=== PATIENT | male | born 1960 | race Two or more races ===

== ENCOUNTER 2024-04-03 13:47 | Outpatient (AMB) | payer MEDICAID, SELFPAY ==
--- NOTE | 2024-04-03 14:12 | A.OFFVIS_ITS ---
Intake Visit Reasons: BPH/elevated PSA Intake Note: New Patient presents for initial visit for BPH/elevated psa Urology Medications: finasteride Blood Thinner: apixaban PVR: 66ml's Clinical Education Academic Coordinator Required: No Accompanied by: Self / Same As Patient Allergies No Known Allergies Allergy (Verified 04/03/24 14:54) Medication List - Last Reconciled 04/03/24 by VINCENT Olvera- apixaban (Eliquis) 5 mg PO BID diclofenac sodium 1% 4 grams topical QID duloxetine 60 mg PO DAILY finasteride 5 mg PO DAILY omeprazole 20 mg PO DAILY tamsulosin 0.4 mg PO QPM trazodone 50 - 100 mg PO BEDTIME HPI Comments Details: Eduardo is a 63-year-old male patient of . He has a past medical history of leukopenia, elevated PSA, renal cysts, fibromyalgia, DVT, epididymitis, hyperlipidemia, stage 3 chronic kidney disease, insomnia, anxiety, depression, and BPH. He presents to the office today as a new patient for an elevated PSA. In discussion with the patient today reports having followed up with [facility] however has since switched insurances and needs to reestablish urology care. In review of patient's chart and previous urology records patient with a history of elevated PSA and BPH. He has a history of negative prostate biopsy 03/30 at which time his PSA was (5.3). Normal prostate MRI 09/2018. He reports being on Flomax and finasteride for many years and feels this has been helpful in maintaining his urinary stream. He discusses missing a dose of Flomax and notes weak urinary stream and urinary hesitancy. He does however endorse retrograde ejaculation. We discussed side effects of urological medications. We discussed obtaining PSA for further assessment evaluation. Patient also with a history of gross hematuria and has underwent in office cystoscopy with [facility]. In review of patient's medical record it appears patient with atypical cytologies 2017, 2019, and 2020 however declined recystoscopy. He currently denies any bothersome urinary issues or concerns. He denies urinary urgency, urinary frequency, incontinence, nocturia, hematuria, dysuria, foul smelling urine, changes to urinary stream, flank pain, fever, and or chills. He is happy with his current voiding parameters. DONG offered however deferred. Discussed obtaining PSA and retroperitoneal ultrasound for further assessment and evaluation. [facility] Medical History (Updated 04/03/24 @ 21:30 [facility] Elevated PSA Leukopenia Cyst of kidney, acquired Fibromyalgia Spondylosis without myelopathy or radiculopathy, cervical region History of DVT of lower extremity Epididymitis Gastro-esophageal reflux disease without esophagitis Hyperlipidemia Stage 3a chronic kidney disease Insomnia Anxiety and depression Benign prostatic hyperplasia with nocturia Surgical History (Updated 03/28/24 @ 17:16 by Chai Samayoa) History of testicular surgery Review of Systems Const All systems reviewed & are unremarkable except as noted in HPI and below Physical Exam Const General: cooperative, healthy appearing, comfortable, no acute distress, well developed, alert and awake Orientation/consciousness: patient oriented x3 Limitations: no limitations HEENT Head: Yes normal to inspection, Yes normocephalic and Yes atraumatic Ears: hearing grossly normal bilaterally Eyes General: appearance normal, both eyes and all related structures Neck Neck: Yes normal visual inspection and Yes trachea midline Chest Chest palpation & inspection: normal inspection of the chest Resp Effort & Inspection: normal respiratory effort and able to speak in complete sentences Cardio Rate: regular rate GI Inspection: Yes normal to inspection General: Yes no CVA tenderness Back/Spine/Pelvis Back: no CVA tenderness Skin General skin exam: no rashes or lesions noted Neuro General: patient oriented x3 Extrem General: Yes normal to inspection Psych Appearance: grossly normal and well kempt Mental Status: mental status grossly normal Speech and movement: Normal speech and movement present and Clear speech present Affect: normal affect Attitude: cooperative Thought process: Normal thought process present Thought content: Normal thought content present Insight: Fair insight present (Psych) Judgement: Fair judgement present (Psych) Office Procedures Post Void Residual Post Residual Void Post Void Residual (PVR): 66 [id number]-[id number] Void Residual by ultrasound Results AMB Urinalysis, Automated UA Leukoctes 0 Dottie/uL Last Edit by Chai Samayoa on 04/03/24 14:45 UA Nitrite Last Edit by Chai Samayoa on 04/03/24 14:45 UA Urobilinogen 0.2 mg/dL Last Edit by Chai Samayoa on 04/03/24 14:45 UA Protein 0 mg/dL Last Edit by Chai Samayoa on 04/03/24 14:45 UA pH 7.0 Last Edit by Chai Samayoa on 04/03/24 14:45 UA Blood 0 Geovanni/uL Last Edit by Chai Samayoa on 04/03/24 14:45 UA Specific Monroe 1.015 Last Edit by Chai Samayoa on 04/03/24 14:45 UA Ketone Last Edit by Chai Samayoa on 04/03/24 14:45 UA Bilirubin 0 mg/dL Last Edit by Chai Samayoa on 04/03/24 14:45 UA Glucose 0 mg/dL Last Edit by Chai Samayoa on 04/03/24 14:45 Results Reviewed Results Reviewed: Laboratory Last Values Urine pH (Auto) 7.0 04/03/24 14:41 Specific Monroe (Auto) 1.015 04/03/24 14:41 Urine Protein (Auto) 0 mg/dL 04/03/24 14:41 Glucose (UA)(Auto) 0 mg/dL 04/03/24 14:41 Urine Blood (Auto) 0 Geovanni/uL 04/03/24 14:41 Urine Bilirubin (Auto) 0 mg/dL 04/03/24 14:41 Urine Urobilinogen (Auto) 0.2 mg/dL 04/03/24 14:41 Leukocyte Esterase (Auto) 0 Dottie/uL 04/03/24 14:41 Assessment & Plan Assessment & Plan (1) Renal cyst: Code(s): N28.1 - Cyst of kidney, acquired Category: Medical (2) Gross hematuria: Code(s): R31.0 - Gross hematuria Category: Medical (3) BPH (benign prostatic hyperplasia): Code(s): N40.0 - Benign prostatic hyperplasia without lower urinary tract symptoms Category: Medical (4) Elevated PSA: Code(s): R97.20 - Elevated prostate specific antigen [PSA] Category: Medical (5) Retrograde ejaculation: Code(s): N53.14 - Retrograde ejaculation Category: Medical Plan In office urinalysis results reviewed with the patient today; as noted above. PVR 66 mL Previous urology records were reviewed for continuity of care. Will obtain redraw of PSA; discussed no caffeine morning of blood work, no heavy lifting 1-2 days prior, and no sexual activity day before. Continue finasteride. Start alfuzosin as discussed and prescribed. Stop Flomax. Discussed potential causes of lower urinary tract symptoms as well as elevated PSA. Discussed history of abnormal cytologies and cystoscopy for further assessment evaluation however patient continues to decline at this time. DONG offered however deferred. Will obtain retroperitoneal ultrasound for further assessment evaluation. Follow-up in 1-3 months with labs and imaging to be completed prior and PVR at next office visit; or sooner with any issues, concerns, and or questions. Orders: Orders AMB Urinalysis Automated Today Z13.9 - Encounter for screening, unspecified AMB Post Void Residual by ultrasound Today Z13.9 - Encounter for screening, unspecified Prostate Specific Antigen 6 Months N40.0 - Benign prostatic hyperplasia without lower urinary tract symptoms, R97.20 - Elevated prostate specific antigen [PSA] Medications: New alfuzosin ER Take before bedtime 10 mg PO BEDTIME 30 tabs 3RF 30 days N32.0 - Bladder- neck obstruction, N40.1 - Benign prostatic hyperplasia with lower urinary tract symptoms, R33.9 - Retention of urine, unspecified, R35.1 - Nocturia, R39.12 - Poor urinary stream Patient Instructions: The patient had an opportunity to ask questions regarding the treatment plan. All questions were answered. Physical exam, labs, and imaging were discussed and reviewed in detail. As well as risks, benefits, and discussion of treatment choices. No major barriers to understanding were identified. The patient expressed understanding and agreement with the above treatment plan. The patient was made aware they should contact our office by phone for worsening of their current condition, the appearance of new symptoms, or with any questions or concerns. Compliance is encouraged with any medications and follow up testing that is ordered. It is a privilege to be allowed the opportunity to participate in? your urological care.? Again, if you have any questions or concerns If you have any questions or concerns please do not hesitate to contact me. The office is [phone]. This note is constructed using voice recognition software. While every effort has been made to ensure accuracy atomic physics teacher errors may have been included. Yours sincerely, YEIMI OlveraP-BC Coding Level of Care Code New Pt Level 4 (59828) Diagnoses Renal cyst N28.1 Gross hematuria R31.0 BPH (benign prostatic hyperplasia) N40.0 Elevated PSA R97.20 Retrograde ejaculation N53.14 CPT Codes Post Residual Void - PVR CPT Code: 35009-[id number] Void Residual by ultrasound ([id number])
== END 2024-04-03 14:59 | disposition home or self-care (01) ==
PROVIDERS: PCP Internal Medicine; Visit Provider Nurse Practitioner Family
DX: N28.1 Cyst of kidney, acquired (principal); R31.0 Gross hematuria; N40.0 Benign prostatic hyperplasia without lower urinary tract symptoms; R97.20 Elevated prostate specific antigen [PSA]; N53.14 Retrograde ejaculation; Z13.9 Encounter for screening, unspecified
CPT/HCPCS: 99204

== ENCOUNTER → 2024-04-03 13:47 | Outpatient (BNVA) | payer MEDICAID, SELFPAY | PROVIDERS: PCP Internal Medicine; Visit Provider Nurse Practitioner Family | DX: R97.20 Elevated prostate specific antigen [PSA] (principal); N28.1 Cyst of kidney, acquired; N40.0 Benign prostatic hyperplasia without lower urinary tract symptoms; R31.0 Gross hematuria; N53.14 Retrograde ejaculation | CPT/HCPCS: 51798; 81003; 99212 ==

== ENCOUNTER 2024-08-02 10:43 | Outpatient (REF) | payer OTHER, SELFPAY ==
[2024-08-02 14:00] LABS: Prostate Specific Antigen 5.15 ng/mL (<0.05-4.0)
== END 2024-08-02 10:44 | disposition home or self-care (01) ==
LOC: HO.HMGCLDS 10:43
PROVIDERS: PCP Internal Medicine; Visit Provider Nurse Practitioner Family
DX: R97.20 Elevated prostate specific antigen [PSA] (principal); N40.0 Benign prostatic hyperplasia without lower urinary tract symptoms; Z12.5 Encounter for screening for malignant neoplasm of prostate
CPT/HCPCS: 36415; 84153

== ENCOUNTER 2024-08-23 11:25 | Outpatient (REF) | payer OTHER, SELFPAY ==
--- OUTSIDE RECORDS SUMMARY | 2024-08-23 12:26 | XMS_ITS | Encounter Summary ---
Author Organization [facility] Address [address] [place] [address] Care Team Providers Care Coil Inspector Name Role Phone Mao Muro MD Primary Care Provider [phone] Reason for Visit * Reason Onset Date Comments Fitting for DME 08/22/2024 Faxed form home care delivered Encounter Details Date Type Department Care Team (Late st Contact Info) Description 08/22/2024 Telephone Adult Medicine [address] [address] Quin Elmore LPN Fitting for DME (Faxed form home care delivered) Social History Tobacco Use Types Packs/Day Years Used Date Smoking Tobacco: Never Smokeless Tobacco: Never Alcohol Use Standard Drinks/Week Comments Yes 0 (1 standard drink = 0.6 oz pur e alcohol) Sex and Gender Information Value Date Recorded Sex Assigned at Not on file Legal Sex Male 4:32 PM EST Gender Identity Not on file Sexual Orientation Not on file documented as of this encounter Progress Notes * Quin Elmore LPN - 08/22/2024 10:55 AM EDT For gloves,skin sealant pull ons disposable underpads Form to Dr Muro to sign documented in this encounter Plan of Treatment Upcoming Encounters Date Type Department Care Team (Late st Contact Info) Description 09/24/2024 9:30 AM EDT Office Visit Adult Medicine [facility] [address] [place] [address] Mao Muro MD [address] [place] [phone] 10/03/2024 10:45 AM EDT Office Visit [facility] Hematology Oncology [address] [place] [address] Radha Andrews MD [address] [place] [address] documented as of this encounter Visit Diagnoses Not on filedocumented in this encounter Care Teams Coil Inspector Relationship Specialty Start Date End Date Mao Muro MD [address] [place] [address] PCP - General Internal Medicine 12/26/16 documented as of this encounter
--- OUTSIDE RECORDS SUMMARY | 2024-08-23 12:26 | XMS_ITS | Clinical Summary ---
Author Organization [facility] Address [address] [place], [place] [id number] Care Team Providers Care Living Specialist Name Role Phone Mao Muro MD Primary Care Provider [phone] Allergies No known active allergies Medications Medication Sig Dispensed Refills Start Date End Date Status diclofenac (VOLTAREN) 75 MG EC tablet TK 1 T PO BID 5 11/23/2018 Active DULoxetine (CYMBALTA) DR capsule 60 mg TK 1 C PO D 5 02/13/2019 Active fluticasone (FLONASE) 50 MCG/ACT nasal spray SHAKE LQ AND U 2 SPRAYS IEN D 3 11/23/2018 Active gabapentin (NEURONTIN) 600 MG tablet TK 1 T PO TID 5 01/20/2019 Active traZODone (DESYREL) 50 MG tablet TK 1 TO 2 TS PO HS PRF FILLER LEAF CUTTER LONG 1 02/13/2019 Active tamsulosin (FLOMAX) 0.4 MG CAPS TK 2 CS PO QD 30 MIN AFTER THE SAME MEAL 5 02/13/2019 Active sertraline (ZOLOFT) 100 MG tablet TK 1 T PO D 5 02/13/2019 Active omeprazole (PriLOSEC) 20 MG capsule TK 1 C PO D 5 11/23/2018 Active Active Problems No known active problems Family History Medical History Relation Name Comments Cancer Father Relation Name Status Comments Father Social History Tobacco Use Types Packs/Day Years Used Date Smoking Tobacco: Never Smokeless Tobacco: Never Alcohol Use Standard Drinks/Week Comments No 0 (1 standard drink = 0.6 oz pur e alcohol) Sex and Gender Information Value Date Recorded Sex Assigned at Not on file Gender Identity Not on file Sexual Orientation Not on file Job Start Date Occupation Industry Not on file Not on file Not on file Last Filed Vital Signs Vital Sign Reading Time Taken Comments Blood Pressure 119/79 09/19/2022 8:49 AM EDT Pulse 67 09/19/2022 8:49 AM EDT Temperature 36.1 ??C (97 ??F) 09/19/2022 8:49 AM EDT Respiratory Rate - - Oxygen Saturation 98% 09/19/2022 8:49 AM EDT Inhaled Oxygen Concentration - - Weight 85.3 kg (188 lb) 09/19/2022 8:49 AM EDT Height 175.3 cm (5' 9 ) 09/19/2022 8:49 AM EDT Body Mass Index 27.76 09/19/2022 8:49 AM EDT Plan of Treatment Health Maintenance Due Date Last Done Comments Hepatitis C Screening 1958 Depression Screening 1970 BMI Counseling 1976 Preventative Health Evaluation 1976 Colon Cancer Screening (Colonoscopy) 10/26/2003 Shingrix-Zoster Vaccine (1 o f 2) 2008 Fall Risk Assessment 10/26/2023 Pneumococcal Vaccine (1 of 1 - PCV) 10/26/2023 COVID-19 Vaccine (3 - 2023-2 5 season) 2024 09/22/2020, 09/01/2020 Influenza Vaccine (#1) 2024 8, 02/11/2015 DTap / Tdap / Td (2 - Td or Tdap) 06/21/2027 06/21/2017 RSV Adult > 60+ Yrs or (1 - 1-dose 75+ series) 2033 Hepatitis B Vaccines Aged Out No long er eligible based on patient's age to complete this topic Pneumococcal Vaccine Aged Out No long er eligible based on patient's age to complete this topic RSV Ped < 20 months Aged Out No longe r eligible based on patient's age to complete this topic Care Teams Living Specialist Relationship Specialty Start Date End Date Mao Muro MD PCP - General Internal Medicine 01/31/20
--- OUTSIDE RECORDS SUMMARY | 2024-08-23 12:26 | XMS_ITS | Clinical Summary ---
Author Organization [facility] Address [address] [place] [address] Phone Care Team Providers Care Automation Test Engineer Name Role Phone Mao Muro MD Primary Care Provider [phone] Allergies No known active allergies Medications apixaban (Eliquis) 5 mg tablet Take 1 tablet (5 mg total) by mouth 2 (two) times a day. 4 Active gabapentin (NEURONTIN) 600 mg tablet TAKE 1 TABLET BY MOUTH THREE TIMES A DAY 4 Active finasteride (PROSCAR) 5 mg tablet Take 1 tablet (5 mg total) by mouth 1 (one) time each day. 4 Active tamsulosin (FLOMAX) 0.4 mg 24 hr capsule Take 2 Capsules by mouth daily. Take 30 mins after same meal every day. 4 Active diclofenac (VOLTAREN) 1 % topical gel Apply 4 g topically 4 times daily. 3 Active fluticasone propionate (FLONASE) 50 mcg/actuation nasal spray Shake liquid and use 2 sprays in each nostril 2 Active sertraline (ZOLOFT) 100 mg tablet Take 1 tablet (100 mg total) by mouth 1 (one) time each day. 2 Active hydrocortisone (Proctozone-HC) 2.5 % rectal cream USE RECTALLY UP TO FIVE TIMES DAILY NEEDED 0 Active omeprazole (PriLOSEC) [address] capsule TAKE 1 CAPSULE BY MOUTH EVERY DAY 90 capsule 1 4 Active traZODone (DESYREL) 50 mg tablet TAKE 1 TO 2 TABLETS BY MOUTH AT BEDTIME 180 tablet 1 5 Active DULoxetine (CYMBALTA) [address] capsule TAKE 1 CAPSULE BY MOUTH EVERY DAY 90 capsule 1 5 Active Active Problems Problem Noted Date Diagnosed Date Anxiety and depression 09/26/2022 Benign prostatic hyperplasia with nocturia 09/26 Gastroesophageal reflux disease 09/26/2022 Hyperlipidemia 09/26/2022 Insomnia 09/26/2022 Stage 3a chronic kidney disease (CMS/HCC V24, CM S/HCC V28) 09/26/2022 COVID-19 06/10/2021 Overview (03/07/2024): DX: 05/25/21 [facility]. Epididymitis 06/10/2021 Overview (03/07/2024): Hospitalized [facility] 06/06/21. Follows with urology. Scheduled for L orchectomy. Spondylosis of cervical slava on without myelopathy or radiculopathy 08/08/2019 Tendinitis of both rotator cuffs 08/08/2019 Elevated PSA 01/28/2019 Hematuria 01/28/2019 Vitamin D deficiency 06/21/2017 Sleep disorder 05/07/2017 Overview (03/07/2024): 05/01/2017 Diagnostic Sleep Study did not reveal sleep apnea. Spondylosis of lumbosacral region 04/14/2017 Fibromyalgia 12/16/2015 Kidney cyst, acquired 02/11/2015 Overview (03/07/2024): Repeat mri in 11/2015 Leukopenia 10/24/2014 Overview (03/07/2024): With thrombocytopenia and splenomegaly. Bone marrow bx 09/2020 was normal Follows with hematology. Encounters Date Type Department Care Team Description 08/22/2024 Telephone Adult Medicine [address] [place] [address] Quin Elmore LPN Fitting for DME (Faxed form home care delivered) 07/25/2024 Telephone Adult Medicine [facility] [address] [place] [address] Quin Elmore LPN Fitting for DME (Faxed form from home care delivered); Appointment from Last 3 Months Immunizations Name Administration Dates Next Due Influenza Quadravalent, MDCK , 0.5ml, preservative free (Flucelvax) 6mo and older 03/27/2018 Influenza trivalent, 0.5mL, preservative free (Fluarix; FluLaval; Fluzone) ages 6mo and older (Afluria) 3 years and older 02/11/2015 Pfizer SARS-CoV-2 COVID-19, mRNA, LNP-S, preservative free 09/22/2020,09/01/2020 Tdap Tetanus diptheria acell ular pertussis (Boostrix; Adacel) 7yo and older 06/21/2017 Surgical History Surgery Date Site/Laterality Comments OTHER SURGICAL HISTORY PROCEDURE: ---- OTHER ----; COMMENT: testicle surgery age 3 Medical History Medical History Date Comments Joint pain 09/08/2014 DX:Joint pain Family History Medical History Relation Name Comments Other cancer Father Relation Name Status Comments Father Social [...] on file Sexual Orientation Not on file Obstetrics History Last Filed Vital Signs Vital Sign Reading Time Taken Comments Blood Pressure 121/78 04/05/2024 10:13 AM EST Pulse 62 04/05/2024 10:13 AM EST Temperature 36.2 ??C (97.2 ??F) 04/05/2024 10:[address] Respiratory Rate - - Oxygen Saturation 100% 04/05/2024 10:13 AM EST Inhaled Oxygen Concentration - - Weight 85.7 kg (189 lb) 05/24/2024 10:22 AM EST Height 175.3 cm (5' 9.02 ) 05/24/2024 10:[address] Body Mass Index 27.9 05/24/2024 10:22 AM EST Plan of Treatment Upcoming Encounters Date Type Department Care Team (Late st Contact Info) Description 09/24/2024 9:30 AM EDT Office Visit Adult Medicine [facility] [address] [place] [address] Mao Muro MD [address] [place] [address] 10/03/2024 10:45 AM EDT Office Visit [facility] Hematology Oncology [address] [place] [phone] Radha Andrews MD [address] [place] [address] Health Maintenance Due Date Last Done Comments Pneumococcal Vaccine: 50+ Years (1 of 1 - PCV) 2008 Zoster Vaccines (1 of 2) 2008 COVID-19 Vaccine (3 - Pfizer risk series) 10/20/2020 09/22/2020, 09/01/2020 Social Influencers of Health Screening 04/23/2022 Falls Risk Assessment 10/26/2023 Depression Screening 09/04/2024 09/05/2023 Influenza Vaccine (Season Ended) 2025 03/27/2018, 02/11/2015 Colorectal Cancer Screening: Colonoscopy 09/29/2025 09/30/2015 DTaP,Tdap,and Td Vaccines (2 - Td or Tdap) 06/21/2027 06/21/2017 Cholesterol Screening (Lipid Panel) 03/11/2029 03/11/2024, 05/27/2022 RSV Immunization Adult Patients (1 - 1-dose 75+ series) 2033 Hepatitis C Screening Completed 11/04/2014 HIB Vaccines Aged Out No longer eligi ble based on patient's age to complete this topic HPV Vaccines Aged Out No longer eligi ble based on patient's age to complete this topic Hepatitis A Vaccines Aged Out No long er eligible based on patient's age to complete this topic Hepatitis B Vaccines Aged Out No long er eligible based on patient's age to complete this topic IPV Vaccines Aged Out No longer eligi ble based on patient's age to complete this topic MMR Vaccines Aged Out No longer eligi ble based on patient's age to complete this topic Meningococcal ACWY Vaccine Aged Out N o longer eligible based on patient's age to complete this topic Meningococcal B Vaccine Aged Out No l onger eligible based on patient's age to complete this topic Pneumococcal Vaccine: Pediatrics (0 to 5 Years) and At-Risk Patients (6 to 64 Years) Aged Out No longer eligible b ased on patient's age to complete this topic RSV Immunization Patients Under 20 months Aged Out No longer eligible b ased on patient's age to complete this topic Varicella Vaccines Aged Out No longer eligible based on patient's age to complete this topic Procedures Procedure Name Priority Date/Time Associated Diagnosis Comments DEPRESSION SCREENING Routine 09/05/2023 LIPID PANEL Routine 05/27/2022 COLONOSCOPY Routine 09/30/2015 HEPATITIS C SCREENING Routine 11/04/2014 from Last 3 Months or Most Recently Relevant to Health Maintenance Results * Depression Screening (09/05/2023) [facility] Depression Screening abstracted [facility] Provider HEALTH MAINTENANCE Final Result * (ABNORMAL) Lipid panel (05/27/2022) [facility] LDL/HDL Ratio 4 0 - 4 Triglycerides 104 0 - 150 mg/dL Cholesterol 181 0 - 200 mg/dL HDL 45 >=40 mg/dL LDL Cholesterol 116(A) 0 - 100 mg/dL Blood Venous blood specimen / Unknown Result [facility] Provider LAB BLOOD ORDERABLES Eboni l Result * Colonoscopy (09/30/2015) [facility] Colonoscopy abstracted, no interpretation Anatomical Region Laterality Modality Other [facility] Provider HEALTH MAINTENANCE Final Result * Hepatitis C Screening (11/04/2014) Hepatitis C Screening abstracted us Historical Provider HEALTH MAINTENANCE Final Result from Last 3 Months or Most Recently Relevant to Health Maintenance Insurance MEDICAID - [place] Care Teams Automation Test Engineer Relationship Specialty Start Date End Date Mao Muro MD [address] [place] [phone] PCP - General Internal Medicine 12/26/16
--- OUTSIDE RECORDS SUMMARY | 2024-08-23 12:26 | XMS_ITS | Encounter Summary ---
Author Organization [facility] Address [address] [place] [address] Care Team Providers Care Mental Health Director Name Role Phone Mao Muro MD Primary Care Provider [phone] Reason for Visit * Reason Onset Date Comments Fitting for DME 07/25/2024 Faxed form from home care delivered Appointment 07/25/2024 Encounter Details Date Type Department Care Team (Late st Contact Info) Description 07/25/2024 Telephone Adult Medicine [address] [phone] Quin Elmore LPN Fitting for DME (Faxed form from home care delivered); Appointment Social History Tobacco Use Types Packs/Day Years [...] Progress Notes * Quin Elmore LPN - 07/25/2024 3:00 PM EDT Called home care delivered to see who and how this originated Spoke to Keke and she says the pt originated this request they sent him a courtesy shipment on 07/24/24 He does not have dx of incontinence in the chart He has appt scheduled with Dr Muro on 09/24/24 can discuss @ that time Called pt to let him know this He says did not want to discuss this with the doctor because he is shy Explained to pt that this will need to be discussed with Dr Muro so there is documentation in the chart Will discuss at appt in September * Quin Elmore LPN - 07/25/2024 1:28 PM EDT For gloves,skin sealant,pull ons and disposable underpads I do not see where we have ordered these for him previously Will check notes for this documented in this encounter Plan of Treatment Upcoming Encounters Date Type Department Care Team (Late st Contact Info) Description 09/24/2024 9:30 AM EDT Office Visit Adult Medicine [address] [phone] Mao Muro MD [address] [place] [address] 10/03/2024 10:45 AM EDT Office Visit [facility] Hematology Oncology [address] [place] [address] Radha Andrews MD [address] [place] [address] documented as of this encounter Visit Diagnoses Not on filedocumented in this encounter Care Teams Mental Health Director Relationship Specialty Start Date End Date Mao Muro MD [address] [place] [address] PCP - General Internal Medicine 12/26/16 documented as of this encounter
== END 2024-08-23 11:26 | disposition home or self-care (01) ==
LOC: HO.HMGCX 11:25
PROVIDERS: PCP Internal Medicine; Visit Provider Nurse Practitioner Family
DX: Z13.89 Encounter for screening for other disorder (principal)

== ENCOUNTER 2024-08-23 11:30 | Outpatient (REF) | payer OTHER, SELFPAY ==
--- NOTE | ~2024-08-23 | US_ITS ---
CLINICAL HISTORY: N28.1 - Cyst of kidney, acquired US retroperitoneum with color Doppler Comparison: None Findings: Right kidney normal size and echotexture, 13.1 cm length. No hydronephrosis. Normal color flow. Normal cortical thickness. Benign renal cortical cysts measuring 7.2 x 6.3 x 6.6 cm upper pole and 1.5 x 1.5 x 1.4 cm lower pole. Left kidney normal size and echotexture, 10.8 cm in length. No hydronephrosis. Normal color flow. Normal cortical width. Urinary bladder is unremarkable with extrinsic mass effect along its base from the adjacent enlarged prostate. Prevoid volume 398.0 mL. Postvoid volume 69.2 mL. Ureteral jets are visualized bilaterally. Prostate gland measuring 5.2 x 4.3 x 5.2 cm. Impression: 1. Kidneys normal size and position with normal cortical width and echotexture. Incidental renal cortical cysts right kidney. 2. Prostate is enlarged volume 61.3 mL there is extrinsic mass effect along the base of the urinary bladder. 3. Elevated postvoid residual. This document has been electronically signed by: Godfrey Patel MD on 08/24/2024 09:30:02
--- OUTSIDE RECORDS SUMMARY | 2024-08-23 12:31 | XMS_ITS | Encounter Summary ---
Author Organization [facility] Address [address] [place] [address] Care Team Providers Care Professor Of Genetics Name Role Phone Mao Muro MD Primary Care Provider [phone] Encounter Details Date Type Department Care Team Description 02/16/2021 Community Relations Rep Report Medical Records [address] [place] [address] Radha Andrews MD Social History Tobacco Use Types Packs/Day Years Used Date Smoking Tobacco: Never Smokeless Tobacco: Never Alcohol Use Standard Drinks/Week Comments Yes 0 (1 standard drink = 0.6 oz pur e alcohol) 1-2 per weekend Sex Assigned at Date Recorded Not on file Job Start Date Occupation Industry Not on file Not on file Not on file COVID-19 Exposure Response Date Recorded In the last month, have you been in contact with someone who was confirmed or suspected to have Coronavirus / COVID-19? No / Unsure 02/12/2021 11:25 AM EDT documented as of this encounter Plan of Treatment Not on file documented as of this encounter Visit Diagnoses Not on filedocumented in this encounter Care Teams Professor Of Genetics Relationship Specialty Start Date End Date Mao Muro MD [address] [place] [address] PCP - General Internal Medicine 12/26/16 documented as of this encounter
--- OUTSIDE RECORDS SUMMARY | 2024-08-23 12:32 | XMS_ITS | Encounter Summary ---
Author Organization [facility] Address [address] [place] [address] Care Team Providers Care Textile Artist Name Role Phone Mao Muro MD Primary Care Provider [phone] Encounter Details Date Type Department Care Team Description 03/11/2021 Employment Training Specialist Report Medical Records [address] [place] [address] Rdaha Andrews MD Social History Tobacco Use Types [...] on filedocumented in this encounter Care Teams Textile Artist Relationship Specialty Start Date End Date Mao Muro MD [address] [place] [address] PCP - General Internal Medicine 12/26/16 documented as of this encounter
--- OUTSIDE RECORDS SUMMARY | 2024-08-23 12:32 | XMS_ITS | Encounter Summary ---
Author Organization [facility] Address [address] [place] [address] Care Team Providers Care Community Relations Manager Name Role Phone Mao Muro MD Primary Care Provider [phone] Encounter Details Date Type Department Care Team Description 06/26/2019 Orders Only Adult Medicine [address] [id number] Mao uMro MD [address] [place] [address] Social History Tobacco Use Types Packs/Day Years Used Date Smoking Tobacco: Never Smokeless Tobacco: Never Alcohol Use Standard Drinks/Week Comments Yes 0 (1 standard drink = 0.6 oz pur e alcohol) 1-2 per weekend Sex Assigned at Date Recorded Not on file Job Start Date Occupation Industry Not on file Not on file Not on file documented as of this encounter Plan of Treatment Not on file documented as of this encounter Visit Diagnoses Not on filedocumented in this encounter Care Teams Community Relations Manager Relationship Specialty Start Date End Date Mao Muro MD [address] [place] [address] PCP - General Internal Medicine 12/26/16 documented as of this encounter
--- OUTSIDE RECORDS SUMMARY | 2024-08-23 12:32 | XMS_ITS | Encounter Summary ---
Author Organization [facility] Address [address] [place] [address] Care Team Providers Care An Employee Sponsor Or Advocate And Name Role Phone Mao Muro MD Primary Care Provider [phone] Encounter Details Date Type Department Care Team Description 12/02/2020 Telephone Adult Medicine [address] [phone] Mao Muro MD [address] [place] [address] [id number] Social History Tobacco Use Types Packs/Day Years [...] have Coronavirus / COVID-19? No / Unsure 12/03/2020 9:29 AM EDT documented as of this encounter Miscellaneous Notes * Telephone Encounter - Flori Mcneal - 12/04/2020 2:50 PM EDT No opening with Dr Muro for the rest of the year. * Telephone Encounter - Mao Muro MD - 12/02/2020 9:08 AM EDT Please schedule pt with me in 4 months in the office f/u bph documented in this encounter Plan of Treatment Not on file documented as of this encounter Visit Diagnoses Not on filedocumented in this encounter Care Teams An Employee Sponsor Or Advocate And Relationship Specialty Start Date End Date Mao Muro MD [address] [place] [address] PCP - General Internal Medicine 12/26/16 documented as of this encounter
--- OUTSIDE RECORDS SUMMARY | 2024-08-23 12:32 | XMS_ITS | Encounter Summary ---
Author Organization [facility] Address [address] [place] [address] Care Team Providers Care Siebel Administrator Name Role Phone Mao Muro MD Primary Care Provider [phone] Encounter Details Date Type Department Care Team Description 01/15/2019 Hospital Medical Records [address] [place] [address] Social History Tobacco Use Types Packs/Day Years [...] on filedocumented in this encounter Care Teams Siebel Administrator Relationship Specialty Start Date End Date Mao Muro MD [address] [place] [address] [id number] PCP - General Internal Medicine 12/26/16 documented as of this encounter
--- OUTSIDE RECORDS SUMMARY | 2024-08-23 12:32 | XMS_ITS | Encounter Summary ---
Author Organization [facility] Address [address] [place] [address] Care Team Providers Care Procurement Internship Name Role Phone Mao Muro MD Primary Care Provider [phone] Encounter Details Date Type Department Care Team Description 10/03/2018 Coke Drawer Report Medical Records [address] [place] [address] Gerson Langford MD Social History Tobacco Use Types Packs/Day [...] on filedocumented in this encounter Care Teams Procurement Internship Relationship Specialty Start Date End Date Mao Muro MD [address] [place] [address] PCP - General Internal Medicine 12/26/16 documented as of this encounter
--- OUTSIDE RECORDS SUMMARY | 2024-08-23 12:32 | XMS_ITS | Encounter Summary ---
Author Organization [facility] Address [address] [place] [address] Care Team Providers Care Dado Operator Name Role Phone Mao Muro MD Primary Care Provider [phone] Encounter Details Date Type Department Care Team Description 05/04/2017 Supervisor Inspection Report Medical Records [address] [place] [address] Ella Zuniga PA-C Social History Tobacco Use Types Packs/Day Years [...] on filedocumented in this encounter Care Teams Dado Operator Relationship Specialty Start Date End Date Mao Muro MD [address] [place] [address] PCP - General Internal Medicine 12/26/16 documented as of this encounter
--- OUTSIDE RECORDS SUMMARY | 2024-08-23 12:32 | XMS_ITS | Encounter Summary ---
Author Organization [facility] Address [address] [place] [address] Care Team Providers Care Microbiology Quality Control Technician Name Role Phone Mao Muro MD Primary Care Provider [phone] Encounter Details Date Type Department Care Team Description 12/17/2020 Office Services Representative Report Medical Records [address] [place] [address] Gerson Langford MD Social History Tobacco Use [...] on filedocumented in this encounter Care Teams Microbiology Quality Control Technician Relationship Specialty Start Date End Date Mao Muro MD [address] [place] [address] PCP - General Internal Medicine 12/26/16 documented as of this encounter
--- OUTSIDE RECORDS SUMMARY | 2024-08-23 12:32 | XMS_ITS | Encounter Summary ---
Author Organization [facility] Address [address] [place] [address] Care Team Providers Care Insurance Claims Specialist Name Role Phone Mao Muro MD Primary Care Provider [phone] Mao Muro MD Primary Care Provider [phone] Encounter Details Date Type Department Care Team Description 10/27/2016 Wood Heel Back Liner Report Medical Records [address] [place] [address] Gerson Langford MD Social History Tobacco Use [...] on filedocumented in this encounter Care Teams Insurance Claims Specialist Relationship Specialty Start Date End Date Mao Muro MD [address] [place] [address] PCP - General Internal Medicine 09/08/14 12/25/16 Mao Muro MD [address] [place] [address] PCP - General Internal Medicine 12/26/16 documented as of this encounter
--- OUTSIDE RECORDS SUMMARY | 2024-08-23 12:32 | XMS_ITS | Encounter Summary ---
Author Organization [facility] Address [address] [place] [address] Care Team Providers Care Mill Dresser Name Role Phone Community, Pcp Primary Care Provider Mao Faustin MD Primary Care Provider [phone] Mao Muro MD Primary Care Provider [phone] Encounter Details Date Type Department Care Team Description 08/08/2014 Release of Information Medical Records [address] [place] [address] Abstract, Provider Social History Tobacco Use Types Packs/Day Years [...] on filedocumented in this encounter Care Teams Mill Dresser Relationship Specialty Start Date End Date Community, Pcp PCP - General Internal Medicine 08/08/14 09/07/14 Mao Muro MD [address] [place] [address] PCP - General Internal Medicine 09/08/14 12/25/16 Mao Muro MD [address] [place] [address] PCP - General Internal Medicine 12/26/16 documented as of this encounter
--- OUTSIDE RECORDS SUMMARY | 2024-08-23 12:32 | XMS_ITS | Encounter Summary ---
Author Organization [facility] Address [address] [place] [address] Care Team Providers Care Frozen Meat Cutter Name Role Phone Mao Muro MD Primary Care Provider [phone] Encounter Details Date Type Department Care Team Description 05/31/2018 Claims Associate Report Medical Records [address] [place] [address] Gerson Langford MD Social History Tobacco Use [...] on filedocumented in this encounter Care Teams Frozen Meat Cutter Relationship Specialty Start Date End Date Mao Muro MD [address] [place] [address] PCP - General Internal Medicine 12/26/16 documented as of this encounter
--- OUTSIDE RECORDS SUMMARY | 2024-08-23 12:32 | XMS_ITS | Encounter Summary ---
Author Organization [facility] Address [address] [place] [address] Care Team Providers Care Golf Course Keeper Name Role Phone Mao Muro MD Primary Care Provider [phone] Encounter Details Date Type Department Care Team Description 01/16/2019 SCAN Medical Records [address] [place] [address] Abhishek Miller Social History Tobacco Use Types Packs/Day Years [...] on file documented as of this encounter Procedures Procedure Name Priority Date/Time Associated Diagnosis Comments OUTSIDE ECHO Routine 01/16/2019 documented in this encounter Results * OUTSIDE ECHO (01/16/2019) Provider Default CARDIOLOGY documented in this encounter Visit Diagnoses Not on filedocumented in this encounter Care Teams Golf Course Keeper Relationship Specialty Start Date End Date Mao Muro MD [address] [place] [address] PCP - General Internal Medicine 12/26/16 documented as of this encounter
--- OUTSIDE RECORDS SUMMARY | 2024-08-23 12:32 | XMS_ITS | Encounter Summary ---
Author Organization [facility] Address [address] [place] [address] Care Team Providers Care Treating Inspector Name Role Phone Mao Muro MD Primary Care Provider [phone] Reason for Visit * Reason Onset Date Comments Faxed Order 09/20/2017 Encounter Details Date Type Department Care Team Description 09/20/2017 Telephone Adult Medicine [address] [phone] Mao Muro MD [address] [place] [address] [phone] Faxed Order Social History Tobacco Use Types Packs/Day Years Used Date Smoking Tobacco: Never Smokeless Tobacco: Never Alcohol Use Standard Drinks/Week Comments Yes 0 (1 standard drink = 0.6 oz pur e alcohol) 1-2 per weekend Sex Assigned at Date Recorded Not on file Job Start Date Occupation Industry Not on file Not on file Not on file documented as of this encounter Miscellaneous Notes * Telephone Encounter - Rozina Romero - 09/20/2017 2:43 PM EDT Faxed order from [facility] , please sign and fax back documented in this encounter Plan of Treatment Not on file documented as of this encounter Visit Diagnoses Not on filedocumented in this encounter Care Teams Treating Inspector Relationship Specialty Start Date End Date Mao Muro MD [address] [place] [address] PCP - General Internal Medicine 12/26/16 documented as of this encounter
--- OUTSIDE RECORDS SUMMARY | 2024-08-23 12:32 | XMS_ITS | Encounter Summary ---
Author Organization [facility] Address [address] [place] [address] Care Team Providers Care Exercise Planner Name Role Phone Mao Muro MD Primary Care Provider [phone] Reason for Visit * Reason Onset Date Comments Prior Authorization 01/16/2018 ciclopirox Encounter Details Date Type Department Care Team Description 01/16/2018 Telephone Podiatry - [address] [phone] Samara Davis DPM Prior Authorization (ciclopirox) Social History Tobacco Use Types Packs/Day Years [...] encounter Miscellaneous Notes * Telephone Encounter - Alia Valdez M.A. - 01/19/2018 10:42 AM EDT Med denied, msg given to Dr Davis * Telephone Encounter - Alia Valdez M.A. - 01/16/2018 2:26 PM EDT PA faxed to [facility] * Telephone Encounter - Angie Jarad - 01/16/2018 2:11 PM EDT Pre Authorization for Medication-do not complete and send this encounter unless you have the fax from the pharmacy. Is this a Cover My Meds request: [place] of Medication ciclopirox nail lacquer Dose of Medication 8% What is the RX # from the faxed refill? [id number] How does patient take this med? Apply medication to top of nail daily [facility]: [phone] [employer] Information from fax: What Prescription Plan does the patient have? [facility] BIN/PCN if applicable: Cardholder ID:[id number] Person Code: Relationship Code: Help desk phone: [phone] documented in this encounter Plan of Treatment Not on file documented as of this encounter Visit Diagnoses Not on filedocumented in this encounter Care Teams Exercise Planner Relationship Specialty Start Date End Date Mao Muro MD [address] [place] [address] PCP - General Internal Medicine 12/26/16 documented as of this encounter
--- OUTSIDE RECORDS SUMMARY | 2024-08-23 12:32 | XMS_ITS | Encounter Summary ---
Author Organization [facility] Address [address] [place] [address] Care Team Providers Care Accounts Payable Coordinator Name Role Phone Mao Muro MD Primary Care Provider [phone] Encounter Details Date Type Department Care Team Description 04/24/2020 Sash Finisher Report Medical Records [address] [place] [address] Radha Andrews MD Social History Tobacco Use [...] on filedocumented in this encounter Care Teams Accounts Payable Coordinator Relationship Specialty Start Date End Date Mao Muro MD [address] [place] [address] PCP - General Internal Medicine 12/26/16 documented as of this encounter
--- OUTSIDE RECORDS SUMMARY | 2024-08-23 12:32 | XMS_ITS | Encounter Summary ---
Author Organization [facility] Address [address] [place] [address] Care Team Providers Care Manager Poker Name Role Phone Mao Muro MD Primary Care Provider Encounter Details Date Type Department Care Team Description 01/05/2022 Grain Operator Report Medical Records [address] [place] [address] Linda Varma NP Social History Tobacco Use Types Packs/Day Years [...] on filedocumented in this encounter Care Teams Manager Poker Relationship Specialty Start Date End Date Mao Muro MD [address] [place], [place] [phone] PCP - General Internal Medicine 12/26/16 documented as of this encounter
--- OUTSIDE RECORDS SUMMARY | 2024-08-23 12:32 | XMS_ITS | Encounter Summary ---
Author Organization [facility] Address [address] [place] [address] Care Team Providers Care Book Author Name Role Phone Mao Muro MD Primary Care Provider Encounter Details Date Type Department Care Team Description 07/11/2019 Magnetic Locater Report Medical Records [address] [place] [address] Gerson Langford MD Social History Tobacco Use [...] on filedocumented in this encounter Care Teams Book Author Relationship Specialty Start Date End Date Mao Muro MD [address] [place] [address] PCP - General Internal Medicine 12/26/16 documented as of this encounter
--- OUTSIDE RECORDS SUMMARY | 2024-08-23 12:32 | XMS_ITS | Encounter Summary ---
Author Organization [facility] Address [address] [place] [address] Care Team Providers Care Inspector Crystal Name Role Phone Mao Muro MD Primary Care Provider [phone] Encounter Details Date Type Department Care Team Description 11/28/2019 Cinder Worker Report Medical Records [address] [place] [address] Gerson Langford MD Social History Tobacco Use [...] on filedocumented in this encounter Care Teams Inspector Crystal Relationship Specialty Start Date End Date Mao Muro MD [address] [place] [address] PCP - General Internal Medicine 12/26/16 documented as of this encounter
--- OUTSIDE RECORDS SUMMARY | 2024-08-23 12:32 | XMS_ITS | Encounter Summary ---
Author Organization [facility] Address [address] [place] [address] Care Team Providers Care Marble Supervisor Name Role Phone Mao Muro MD Primary Care Provider [phone] Encounter Details Date Type Department Care Team Description 01/12/2022 Family Readiness Support Assistant Report Medical Records [address] [place] [address] Linda Varma NP Social History Tobacco Use [...] on filedocumented in this encounter Care Teams Marble Supervisor Relationship Specialty Start Date End Date Mao Muro MD [address] [place], [place] [phone] PCP - General Internal Medicine 12/26/16 documented as of this encounter
--- OUTSIDE RECORDS SUMMARY | 2024-08-23 12:32 | XMS_ITS | Encounter Summary ---
Author Organization [facility] Address [address] [place] [address] Care Team Providers Care Arch Cushion Press Operator Name Role Phone Mao Muro MD Primary Care Provider [phone] Reason for Visit * Reason Onset Date Comments Mychart Rx Refill 02/24/2023 Encounter Details Date Type Department Care Team Description 02/24/2023 Refill Adult Medicine [address] [phone] Mao Muro MD [address] [place] [address] [phone] Mychart Rx Refill Social History Tobacco Use Types Packs/Day Years [...] on filedocumented in this encounter Care Teams Arch Cushion Press Operator Relationship Specialty Start Date End Date Mao Muro MD [address] [place] [address] [phone] PCP - General Internal Medicine 12/26/16 documented as of this encounter
--- OUTSIDE RECORDS SUMMARY | 2024-08-23 12:32 | XMS_ITS | Encounter Summary ---
Author Organization [facility] Address [address] [place] [address] Care Team Providers Care Front Man Name Role Phone Mao Muro MD Primary Care Provider [phone] Encounter Details Date Type Department Care Team Description 09/19/2022 Sack Filler Report Medical Records [address] [place] [address] Radha Andrews MD Social History Tobacco Use [...] on filedocumented in this encounter Care Teams Front Man Relationship Specialty Start Date End Date Mao Muro MD [address] [place] [address] PCP - General Internal Medicine 12/26/16 documented as of this encounter
--- OUTSIDE RECORDS SUMMARY | 2024-08-23 12:32 | XMS_ITS | Encounter Summary ---
Author Organization [facility] Address [address] [place] [address] Care Team Providers Care Merchant Mariner Name Role Phone Mao Muro MD Primary Care Provider [phone] Encounter Details Date Type Department Care Team Description 06/08/2021 Metal Roofing Mechanic Report Medical Records [address] [place] [address] Gerson Langford MD Social History Tobacco Use [...] have Coronavirus / COVID-19? No / Unsure 06/10/2021 8:33 AM EST documented as of this encounter Plan of Treatment Not on file documented as of this encounter Visit Diagnoses Not on filedocumented in this encounter Care Teams Merchant Mariner Relationship Specialty Start Date End Date Mao Muro MD [address] [place] [address] PCP - General Internal Medicine 12/26/16 documented as of this encounter
--- OUTSIDE RECORDS SUMMARY | 2024-08-23 12:32 | XMS_ITS | Encounter Summary ---
Author Organization [facility] Address [address] [place] [address] Care Team Providers Care Tile Presser Name Role Phone Mao Muro MD Primary Care Provider [phone] Encounter Details Date Type Department Care Team Description 09/21/2022 Health And Safety Tech Report Medical Records [address] [place] [address] Gerson Langford MD Social History Tobacco Use [...] on filedocumented in this encounter Care Teams Tile Presser Relationship Specialty Start Date End Date Mao Muro MD [address] [place] [address] PCP - General Internal Medicine 12/26/16 documented as of this encounter
--- OUTSIDE RECORDS SUMMARY | 2024-08-23 12:32 | XMS_ITS | Clinical Summary ---
Author Organization [facility] Address [address] [place] [address] Care Team Providers Care Nurse Practitioner Name Role Phone Mao Muro MD Primary Care Provider [phone] Allergies No known active allergies Medications Medication Sig Dispensed Refills Start Date End Date Status PROCTOZONE-HC 2.5 % rectal cream USE RECTALLY UP TO FIVE TIMES DAILY NEEDED 30 g 0 12/30/2019 Active sertraline (ZOLOFT) 100 MG tablet TAKE 1 TABLET BY MOUTH EVERY DAY 90 Tablet 0 09/03/2021 Active fluticasone 50 MCG/ACT nasal spray Shake liquid and use 2 sprays in each nostril 1 Act 0 11/03/2021 Active omeprazole (PRILOSEC) 20 MG capsule TAKE 1 CAPSULE BY MOUTH EVERY DAY 90 Capsule 1 08/25/2023 Active trazodone (DESYREL) 50 MG tablet TAKE 1 TO 2 TABLETS BY MOUTH AT BEDTIME 180 Tablet 1 11/20/2023 Active duloxetine (CYMBALTA) 60 MG capsule TAKE 1 CAPSULE BY MOUTH EVERY DAY 90 Capsule 1 01/29/2024 Active gabapentin (NEURONTIN) 600 MG tablet Take 1 Tablet by mouth 3 times daily. 270 Tablet 1 03/11/2024 Active Eliquis 5 MG Tab Take 1 Tablet by mouth 2 Times Daily. 180 Tablet 1 03/11/2024 Active finasteride (PROSCAR) 5 MG tablet Take 1 Tablet by mouth daily. 90 Tablet 1 03/11/2024 Active tamsulosin (FLOMAX) 0.4 MG 24 hr capsuleIndications: Benign non-nodular prostatic hyperplasia with lower urinary tract symptoms Take 2 Capsules by mouth daily. Take 30 mins after same meal every day. 180 Capsule 1 03/11/2024 Active Diclofenac Sodium (Voltaren) 1 % Gel Apply 4 g topically 4 times daily. 60 g 0 03/11/2024 Active Active Problems Problem Noted Date Benign prostatic hyperplasia with noctur ia 09/26/2022 Anxiety and depression 09/26/2022 Insomnia 09/26/2022 Stage 3a chronic kidney disease 09/27/19 23 Hyperlipidemia 09/26/2022 Gastroesophageal reflux disease 09/27/19 23 COVID-19 06/10/2021 Overview: DX: 05/25/21 [facility]. Epididymitis 06/10/2021 Overview: Hospitalized [facility] 06/06/21. Follows with urology. Scheduled for L orchectomy. History of DVT of lower extremity 2020 Spondylosis of cervical region without m yelopathy or radiculopathy 08/08/2019 Tendinitis of both rotator cuffs 020 Hematuria 01/28/2019 Elevated PSA 01/28/2019 Vitamin D deficiency 06/21/2017 Sleep disorder 05/07/2017 Overview: 05/01/2017 Diagnostic Sleep Study did not reveal sleep apnea. Spondylosis of lumbosacral region 2016 Fibromyalgia 12/16/2015 Kidney cyst, bosniak 1 02/11/2015 Overview: Repeat mri in 11/2015 Leukopenia 10/24/2014 Overview: With thrombocytopenia and splenomegaly. Bone marrow bx 09/2020 was normal Follows with hematology. Immunizations Name Administration Dates Next Due COVID-19 (Pfizer) 09/22/2020,09/01/2020 Influenza (> 6 Months) 02/11/2015 Influenza Vaccine-preservati ve Free-quadrivalent 4 Years 03/27/2018 Tdap 06/21/2017 Family History Medical History Relation Name Comments Cancer, Other Father Relation Name Status Comments Father Social [...] Sign Reading Time Taken Comments Blood Pressure 100/70 03/11/2024 8:33 AM EDT Pulse 68 03/11/2024 8:33 AM EDT Temperature 36.2 ??C (97.2 ??F) 03/11/2024 8:33 AM ED T Respiratory Rate 12 03/11/2024 8:33 AM EDT Oxygen Saturation 99% 03/18/2021 9:12 AM EDT Inhaled Oxygen Concentration - - Weight 87.5 kg (193 lb) 03/11/2024 8:33 AM EDT Height 175.3 cm (5' 9 ) 03/11/2024 8:33 AM EDT Body Mass Index 28.5 03/11/2024 8:33 AM EDT Plan of Treatment Health Maintenance Due Date Last Done Comments SHINGLES VACCINE (1 of 2) 2008 PNEUMOCOCCAL VACCINE (1 - PCV) 10/26/2023 Covid-19 Vaccine (3 - 2022-2 4 season) 2024 09/22/2020, 09/01/2020 BMI CHECK/ADVISE 05/15/2024 05/03/2021, , 07/29/2020, Additional history exists DEPRESSION SCREENING/FOLLOWUP 05/15/2024, 09/05/2023, 07/28/2023, Additional history exists INFLUENZA (Season Ended) 2025 03/27/2018, 01/15 COLON CANCER SCREENING 09/29/2025 09/30/2015 DTAP/TDAP/TD (2 - Td or Tdap) 06/21/2027 06/21/2017 CHOLESTEROL SCREENING 03/11/2029 03/11/2024 , 05/27/2022, 06/10/2021, Additional history exists HEPATITIS C SCREENING Completed 11/04/2014 Care Teams Nurse Practitioner Relationship Specialty Start Date End Date Mao Muro MD [address] [place] [id number] PCP - General Internal Medicine 12/26/16
--- OUTSIDE RECORDS SUMMARY | 2024-08-23 12:32 | XMS_ITS | Encounter Summary ---
Author Organization [facility] Address [address] [place] [address] Care Team Providers Care Long Term Care Pharmacist Name Role Phone Mao Muro MD Primary Care Provider [phone] Encounter Details Date Type Department Care Team Description 06/06/2021 Hospital Medical Records [address] [place] [address] Tisha Carroll MD Social History Tobacco Use Types Packs/Day [...] on filedocumented in this encounter Care Teams Long Term Care Pharmacist Relationship Specialty Start Date End Date Mao Muro MD [address] [place] [phone] PCP - General Internal Medicine 12/26/16 documented as of this encounter
--- OUTSIDE RECORDS SUMMARY | 2024-08-23 12:32 | XMS_ITS | Encounter Summary ---
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
--- OUTSIDE RECORDS SUMMARY | 2024-08-23 12:32 | XMS_ITS | Encounter Summary ---
Author Organization [facility] Address [address] [place] [address] Care Team Providers Care Database Marketing Analyst Name Role Phone Mao Muro MD Primary Care Provider Encounter Details Date Type Department Care Team Description 01/17/2019 Hospital Medical Records [address] [place] [address] Social History Tobacco Use Types Packs/Day Years [...] on filedocumented in this encounter Care Teams Database Marketing Analyst Relationship Specialty Start Date End Date Mao Muro MD [address] [place] [address] [phone] PCP - General Internal Medicine 12/26/16 documented as of this encounter
== END 2024-08-23 11:31 | disposition home or self-care (01) ==
LOC: HO.HMGCX 11:30
PROVIDERS: PCP Internal Medicine; Visit Provider Nurse Practitioner Family
DX: N28.1 Cyst of kidney, acquired (principal); N40.0 Benign prostatic hyperplasia without lower urinary tract symptoms
CPT/HCPCS: 76770

== ENCOUNTER → 2024-08-23 11:32 | Outpatient (BNV) | payer OTHER, SELFPAY | PROVIDERS: PCP Internal Medicine; Visit Provider Radiology Diagnostic Radiology | DX: N28.1 Cyst of kidney, acquired (principal); N40.0 Benign prostatic hyperplasia without lower urinary tract symptoms | CPT/HCPCS: 76770 ==

== ENCOUNTER 2024-10-14 09:46 | Outpatient (AMB) | payer OTHER, SELFPAY ==
--- NOTE | 2024-10-14 09:25 | MHC.OFFVIS ---
Intake Visit Reasons: follow up/US/PSA(set) Intake Note: Patient presents today for follow up on: BPH, elevated psa, ultrasound and psa lab results Imaging Completed: 08/24/24 PSA: 5.15 Urology Medications: finasteride, alfuzosin Blood Thinner: apixaban PVR: 0ml's Group Work Program Director Required: No Accompanied by: Self / Same As Patient Allergies No Known Allergies Allergy (Verified 10/14/24 10:14) Medication List - Last Reconciled 10/14/24 by SRAVANI Olvera alfuzosin ER 10 mg PO BEDTIME 30 days apixaban (Eliquis) 5 mg PO BID diclofenac sodium 1% 4 grams topical QID duloxetine 60 mg PO DAILY finasteride 5 mg PO DAILY omeprazole 20 mg PO DAILY trazodone 50 - 100 mg PO BEDTIME HPI Comments Details: Eduardo is a 63-year-old male patient of . He has a past medical history of leukopenia, elevated PSA, renal cysts, fibromyalgia, DVT, epididymitis, hyperlipidemia, stage 3 chronic kidney disease, insomnia, anxiety, depression, and BPH. He presents to the office today for follow-up of his elevated PSA. Of note, patient was seen approximately 6 months ago as a new patient for an elevated PSA and had been transferring his care from [facility]. During last office visit redraw of PSA and retroperitoneal ultrasound were ordered for further assessment evaluation. These results were reviewed and communicated with the patient today. Retroperitoneal ultrasound 09/06 notes the kidneys are normal in size and position. Incidental renal cortical cysts in the right kidney. Prostate is enlarged with a volume of 61 mL there is extrinsic mass effect along the base of the urinary bladder. PSA 08/06 5.2. When asked he reports compliance with finasteride and alfuzosin as prescribed. During last office visit patient's Flomax was switched to alfuzosin as patient had been reporting and experiencing issues with retrograde ejaculation. He discusses feeling alfuzosin has been helpful and would like to continue. He currently denies any bothersome urinary issues or concerns. In review of patient's chart and previous urology records patient with a history of elevated PSA and BPH. He has a history of negative prostate biopsy 03/30 at which time his PSA was (5.3). Normal prostate MRI 09/2018. Patient also with a history of gross hematuria and has underwent in office cystoscopy with [facility]. In review of patient's medical record it appears patient with atypical cytologies 2018, 2019, and 2020 however declined recystoscopy. He currently denies any bothersome urinary issues or concerns. He denies urinary urgency, urinary frequency, incontinence, nocturia, hematuria, dysuria, foul smelling urine, changes to urinary stream, flank pain, fever, and or chills. He is happy with his current voiding parameters. DONG offered however deferred. We discussed elevated PSA in the setting of compliance with finasteride. We discussed further interventions to include surveillance monitoring verses prostate biopsy verses MRI of the prostate. Risks and benefits of these interventions were discussed. All questions were answered. He discusses his upcoming trip [facility]. He otherwise offers no other issues or concerns at this time. [facility] Medical History Elevated PSA Leukopenia Cyst of kidney, acquired Fibromyalgia Spondylosis without myelopathy or radiculopathy, cervical region History of DVT of lower extremity Epididymitis Gastro-esophageal reflux disease without esophagitis Hyperlipidemia Stage 3a chronic kidney disease Insomnia Anxiety and depression Benign prostatic hyperplasia with nocturia Surgical History History of testicular surgery Review of Systems Const All systems reviewed & are unremarkable except as noted in HPI and below Physical Exam Const General: cooperative, healthy appearing, comfortable, no acute distress, well developed, alert and awake Orientation/consciousness: patient oriented x3 Limitations: no limitations HEENT Head: Yes normal to inspection, Yes normocephalic and Yes atraumatic Ears: hearing grossly normal bilaterally Eyes General: appearance normal, both eyes and all related structures Neck Neck: Yes normal visual inspection and Yes trachea midline Chest Chest palpation & inspection: normal inspection of the chest Resp Effort & Inspection: normal respiratory effort and able to speak in complete sentences Cardio Rate: regular rate GI Inspection: Yes normal to inspection General: Yes no CVA tenderness Back/Spine/Pelvis Back: no CVA tenderness Skin General skin exam: no rashes or lesions noted Neuro General: patient oriented x3 Extrem General: Yes normal to inspection Psych Appearance: grossly normal and well kempt Mental Status: mental status grossly normal Speech and movement: Normal speech and movement present and Clear speech present Affect: normal affect Attitude: cooperative Thought process: Normal thought process present Thought content: Normal thought content present Insight: Fair insight present (Psych) Judgement: Fair judgement present (Psych) Office Procedures Post Void Residual Post Residual Void Post Void Residual (PVR): 0 96856-[id number] Void Residual by ultrasound Results AMB Urinalysis, Automated UA Leukoctes 0 Dottie/uL Last Edit by Vernon Gonzaleziel on 10/14/24 09:59 UA Nitrite Negative Last Edit by Vernon Goyal on 10/14/24 09:59 UA Urobilinogen 3.5 mg/dL Last Edit by Vernon Goyal on 10/14/24 09:59 UA Protein 0 mg/dL Last Edit by Vernon Goyal on 10/14/24 09:59 UA pH 6.0 Last Edit by Vernon Goyal on 10/14/24 09:59 UA Blood 0 Geovanni/uL Last Edit by Vernon Goyal on 10/14/24 09:59 UA Specific [place] 1.015 Last Edit by Vernon Goyal on 10/14/24 09:59 UA Ketone Negative Last Edit by Vernon Goyal on 10/14/24 09:59 UA Bilirubin 0 mg/dL Last Edit by Vernon Goyal on 10/14/24 09:59 UA Glucose 0 mg/dL Last Edit by Vernon Goyal on 10/14/24 09:59 Results Reviewed Results Reviewed: Laboratory Last Values Urine pH (Auto) 6.0 10/14/24 09:58 Specific [place] (Auto) 1.015 10/14/24 09:58 Urine Protein (Auto) 0 mg/dL 10/14/24 09:58 Glucose (UA)(Auto) 0 mg/dL 10/14/24 09:58 Urine Ketones (Auto) Negative 10/14/24 09:58 Urine Blood (Auto) 0 Geovanni/uL 10/14/24 09:58 Urine Nitrite (Auto) Negative 10/14/24 09:58 Urine Bilirubin (Auto) 0 mg/dL 10/14/24 09:58 Urine Urobilinogen (Auto) 3.5 mg/dL 10/14/24 09:58 Leukocyte Esterase (Auto) 0 Dottie/uL 10/14/24 09:58 Date of Service: 08/23/24 Procedure(s): US retroperitoneal comp Findings: Right kidney normal size and echotexture, 13.1 cm length. No hydronephrosis. Normal color flow. Normal cortical thickness. Benign renal cortical cysts measuring 7.2 x 6.3 x 6.6 cm upper pole and 1.5 x 1.5 x 1.4 cm lower pole. Left kidney normal size and echotexture, 10.8 cm in length. No hydronephrosis. Normal color flow. Normal cortical width. Urinary bladder is unremarkable with extrinsic mass effect along its base from the adjacent enlarged prostate. Prevoid volume 398.0 mL. Postvoid volume 69.2 mL. Ureteral jets are visualized bilaterally. Prostate gland measuring 5.2 x 4.3 x 5.2 cm. Impression: 1. Kidneys normal size and position with normal cortical width and echotexture. Incidental renal cortical cysts right kidney. 2. Prostate is enlarged volume 61.3 mL there is extrinsic mass effect along the base of the urinary bladder. 3. Elevated postvoid residual. Assessment & Plan Assessment & Plan (1) Elevated PSA: Code(s): R97.20 - Elevated prostate specific antigen [PSA] Category: Medical (2) Retrograde ejaculation: Code(s): N53.14 - Retrograde ejaculation Category: Medical (3) Renal cyst: Code(s): N28.1 - Cyst of kidney, acquired Category: Medical (4) BPH (benign prostatic hyperplasia): Code(s): N40.0 - Benign prostatic hyperplasia without lower urinary tract symptoms Category: Medical (5) Enlarged prostate: Code(s): N40.0 - Benign prostatic hyperplasia without lower urinary tract symptoms Category: Medical Plan In office urinalysis results reviewed with the patient today; as noted above. PVR 0 mL. Recent retroperitoneal ultrasound results reviewed with the patient today; as noted above. Recent PSA results reviewed with the patient today; as noted above. We discussed at length potential causes of elevated PSA as well as further treatment options and risks and benefits of these treatment options. Will obtain MRI of the prostate for further assessment evaluation. He currently denies any bothersome urinary issues or concerns. He reports be happy with current voiding parameters. DONG offered however deferred. Will obtain redraw of PSA % in free with no sex the night before, no caffeine morning of, and no heavy lifting 1-2 days prior. Continue finasteride and alfuzosin as prescribed. Follow-up in 1-3 months with imaging, PSA, and PVR; or sooner with any issues, concerns, and or questions. Orders: Orders AMB Post Void Residual by ultrasound Today N40.0 - Benign prostatic hyperplasia without lower urinary tract symptoms MR Prostate wo/w con Today R97.20 - Elevated prostate specific antigen [PSA] AMB Urinalysis Automated Today Z13.9 - Encounter for screening, unspecified PSA,Total (Free>4and<10) Today R97.20 - Elevated prostate specific antigen [PSA] Medications: Changed From alfuzosin ER Take before bedtime 10 mg PO BEDTIME 30 days 30 tabs 1RF N32.0 - Bladder-neck obstruction, N40.1 - Benign prostatic hyperplasia with lower urinary tract symptoms, R33.9 - Retention of urine, unspecified, R35.1 - Nocturia, R39.12 - Poor urinary stream To alfuzosin ER Take before bedtime 10 mg PO BEDTIME 90 tabs 2RF 90 days N32.0 - Bladder-neck obstruction, N40.1 - Benign prostatic hyperplasia with lower urinary tract symptoms, R33.9 - Retention of urine, unspecified, R35.1 - Nocturia, R39.12 - Poor urinary stream From finasteride 5 mg PO DAILY To finasteride 5 mg PO DAILY 90 tabs 1RF 90 days Patient Instructions: The patient had an opportunity to ask questions regarding the treatment plan. All questions were answered. Physical exam, labs, and imaging were discussed and reviewed in detail. As well as risks, benefits, and discussion of treatment choices. No major barriers to understanding were identified. The patient expressed understanding and agreement with the above treatment plan. The patient was made aware they should contact our office by phone for worsening of their current condition, the appearance of new symptoms, or with any questions or concerns. Compliance is encouraged with any medications and follow up testing that is ordered. It is a privilege to be allowed the opportunity to participate in? your urological care.? Again, if you have any questions or concerns If you have any questions or concerns please do not hesitate to contact me. The office is [phone]. This note is constructed using voice recognition software. While every effort has been made to ensure accuracy pantograph engraver errors may have been included. Yours sincerely, Ethel Devine, ROPE LAYING MACHINE OPERATOR-BC Coding Level of Care Code Est Pt Level 3 (08116) Complex EM visit Add On G2211 Diagnoses Elevated PSA R97.20 Retrograde ejaculation N53.14 Renal cyst N28.1 BPH (benign prostatic hyperplasia) N40.0 Enlarged prostate N40.0 CPT Codes Post Residual Void - PVR CPT Code: 29723-Wlqb Void Residual by ultrasound ([id number])
== END 2024-10-14 10:22 | disposition home or self-care (01) ==
LOC: HO.HUSH 09:46
PROVIDERS: PCP Internal Medicine; Visit Provider Nurse Practitioner Family
DX: R97.20 Elevated prostate specific antigen [PSA] (principal); N53.14 Retrograde ejaculation; N28.1 Cyst of kidney, acquired; N40.0 Benign prostatic hyperplasia without lower urinary tract symptoms; Z13.9 Encounter for screening, unspecified
CPT/HCPCS: 99213; G2211

== ENCOUNTER → 2024-10-14 09:46 | Outpatient (BNVA) | payer OTHER, SELFPAY | PROVIDERS: PCP Internal Medicine; Visit Provider Nurse Practitioner Family | DX: N40.1 Benign prostatic hyperplasia with lower urinary tract symptoms (principal); N32.0 Bladder-neck obstruction; R97.20 Elevated prostate specific antigen [PSA]; N53.14 Retrograde ejaculation; N28.1 Cyst of kidney, acquired; R33.8 Other retention of urine; R35.1 Nocturia; R39.12 Poor urinary stream | CPT/HCPCS: 51798; 81003; 99212 ==

== ENCOUNTER 2024-12-31 12:32 | Outpatient (REF) | payer OTHER, SELFPAY ==
--- OUTSIDE RECORDS SUMMARY | 2024-12-31 13:46 | XMS_ITS | Clinical Summary ---
Author Organization [facility] Address [address] [place] [id number] Care Team Providers Care Astronomy Professor Name Role Phone Mao Muro MD Primary Care Provider Allergies No known active allergies Medications Medication [...] 1 TO 2 TS PO HS PRF SAP BASIS ADMINISTRATOR 1 02/13/2019 Active tamsulosin (FLOMAX) 0.4 MG [...] 67 09/19/2022 8:49 AM EDT Temperature 36.1 C (97 F) 09/19/2022 8:49 AM EDT Respiratory Rate - [...] season) 2024 09/22/2020, 09/01/2020 Influenza Vaccine (#1) 2025 8, 02/11/2015 DTap / Tdap / Td [...] age to complete this topic Care Teams Astronomy Professor Relationship Specialty Start Date End Date Mao Muro MD PCP - General Internal Medicine 01/31/20
--- OUTSIDE RECORDS SUMMARY | 2024-12-31 13:47 | XMS_ITS | Clinical Summary ---
Author Organization [facility] Address [address] [place] [address] Phone Care Team Providers Care Visual Presentation Manager Name Role Phone Mao Muro MD Primary Care Provider [phone] Allergies No known active allergies Medications finasteride (PROSCAR) 5 mg tablet Take 1 [...] EVERY DAY 90 capsule 1 4 Active gabapentin (NEURONTIN) 600 mg tablet Take 1 tablet (600 mg total) by mouth 3 (three) times a day. 270 tablet 3 5 Active apixaban (Eliquis) 5 mg tablet Take 1 tablet (5 mg total) by mouth 2 (two) times a day. 180 tablet 3 5 Active traZODone (DESYREL) 50 mg tablet Take 1 tablet (50 mg total) by mouth at bedtime. at bedtime 180 tablet 1 5 Active DULoxetine (CYMBALTA) [...] 09/26/2022 COVID-19 06/10/2021 Overview (03/07/2024): DX: 05/25/21 [facility]. Epididymitis 06/10/2021 Overview (03/07/2024): Hospitalized [facility] 06/06/21. Follows with urology. Scheduled for L [...] Encounters Date Type Department Care Team Description 10/24/2024 9:15 AM EDT Office Visit [facility] Hematology Oncology [address] [place] [address] Radha Andrews MD Leukopenia, unspecified type (Primary Dx); Thrombocytopenia ([facility] V24) 10/12/2024 10:35 AM EDT - 10/12/2024 11:59 PM EDT Hospital Encounter [facility] Ultrasound [address] [place] [address] Leukopenia, unspecified type; Thrombocytopenia ([facility] V24) Discharge Disposition: Home or Self Care 10/04/2024 Telephone [facility] Hematology Oncology [address] [place] [phone] Maida Lopez [place] Abdomen Ultrasound appt 10/03/2024 10:45 AM EDT Office Visit [facility] Hematology Oncology [address] [place] [address] Radha Andrews MD Leukopenia, unspecified type (Primary Dx); Thrombocytopenia ([facility] V24) 10/02/2024 Telephone Adult Medicine [address] [phone] Mao Muro MD Referral from Last 3 Months Immunizations Name Administration [...] Date Smoking Tobacco: Never Smokeless Tobacco: Never Tobacco Cessation:Counseling Given: Not Answered Alcohol Use Standard Drinks/Week Comments Yes 0 (1 standard drink = 0.6 oz pur e alcohol) Sex and Gender Information Value Date Recorded Sex Assigned at Not on file Legal Sex Male 4:32 PM EST Gender Identity Not on file Sexual Orientation Not on file Obstetrics History Last Filed Vital Signs Vital Sign Reading Time Taken Comments Blood Pressure 130/81 10/24/2024 9:33 AM EDT Pulse 66 10/24/2024 9:33 AM EDT Temperature 36.5 C (97.7 F) 10/24/2024 9:33 AM EDT Respiratory Rate 20 09/24/2024 9:39 AM EDT Oxygen Saturation 97% 10/24/2024 9:33 AM EDT Inhaled Oxygen Concentration - - Weight 83.5 kg (184 lb) 10/24/2024 9:33 AM EDT Height 180.3 cm (5' 11 ) 10/03/2024 10:48 AM EDT Body Mass Index 25.66 10/03/2024 10:48 AM EDT Plan of Treatment Upcoming Encounters Date Type Department Care Team (Late st Contact Info) Description 04/23/2025 9:45 AM EST Office Visit Adult Medicine [address] [phone] Mao Muro MD [address] [place] [phone] 05/22/2025 9:30 AM EST Office Visit [facility] Hematology Oncology [address] [place] [phone] Radha Andrews MD [address] [place] [address] Health Maintenance Due Date Last Done Comments Zoster Vaccines (1 of 2) 1977 Pneumococcal Vaccine: 50+ Years (1 of 1 - PCV) 2008 COVID-19 Vaccine (3 - Pfizer risk series) 10/20/2020 09/22/2020, 09/01/2020 Medicare Annual Wellness Visit 04/23/2022 Social Influencers of Health Screening 04/23/2022 Falls Risk Assessment 10/26/2023 Depression Screening 05/15/2024 09/05/2023 Influenza Vaccine (#1) 2025 8, 02/11/2015 Colorectal Cancer Screening: Colonoscopy 09/29/2025 09/30/2015 [...] Procedure Name Priority Date/Time Associated Diagnosis Comments US ABDOMEN COMPLETE Routine 10/12/2024 1 1:23 AM EDT Leukopenia, unspecified type Thrombocytopenia (CMS/HCC V24) BILIRUBIN DUPLICATE PROCEDURE TO ORDER Routine 10/03/2024 11:36 AM EDT Leukopenia, unspecified type Thrombocytopenia (CMS/HCC V24) CBC WITH AUTO DIFFERENTIAL Routine 10/03/2024 11:36 AM EDT Leukopenia, unspecified type Thrombocytopenia (CMS/HCC V24) BETA 2 MICROGLOBULIN, SERUM Routine 10/03/2024 11:36 AM EDT Leukopenia, unspecified type Thrombocytopenia (CMS/HCC V24) LACTATE DEHYDROGENASE Routine 10/03/2024 11:36 AM EDT Leukopenia, unspecified type Thrombocytopenia (CMS/HCC V24) ISAC IFA WITH TITER AND PATTERN Routine 10/03/2024 11:36 AM EDT Leukopenia, unspecified type Thrombocytopenia (CMS/HCC V24) CBC AND DIFFERENTIAL Routine 10/03/2024 11:36 AM EDT Leukopenia, unspecified type Thrombocytopenia (CMS/HCC V24) COMPREHENSIVE METABOLIC PANEL Routine 10/03/2024 11:36 AM EDT Leukopenia, unspecified type Thrombocytopenia (CMS/HCC V24) HM DEPRESSION SCREENING Routine 09/05/2023 LIPID PANEL Routine 05/27/2022 COLONOSCOPY Routine 09/30/2015 HEPATITIS C SCREENING Routine 11/04/2014 from Last 3 Months or Most Recently Relevant to Health Maintenance Results * US Abdomen Complete (10/12/2024 11:23 AM EDT) Anatomical Region Laterality Modality Body Ultrasound 10/14/2024 9:48 AM EDT Impressions 10/14/2024 9:50 AM EDT No significant findings. -------- FINAL REPORT -------- Dictated By: Alexander Smith Dictated Date: 10/14/2024 09:48 ET Assigned Physician: Alexander Smith Reviewed and Electronically Signed By: Alexander Smith Signed Date: 10/14/2024 09:50 ET Workstation ID: [id number] Transcribed By: Self Edit Transcribed Date: 10/14/2024 09:48 ET Narrative 10/14/2024 9:50 AM EDT PROCEDURE: Ultrasound of the abdomen. HISTORY: Abd pain, unspecified. COMPARISON: CT dated 06/05/2021. TECHNIQUE: Grayscale, color Doppler, and spectral Doppler ultrasound evaluation of the abdomen. FINDINGS: Liver: Normal echotexture. No focal lesion. Normal flow in the main portal vein. Biliary: Normal gallbladder and biliary tree. Negative sonographic Steel sign. Pancreas: Visualized portions are normal. Kidneys: Normal size. No hydronephrosis. Right cortical cysts. The largest is exophytic from the upper pole and measures 7.1 cm. Spleen: Upper normal size. No focal lesion. Vasculature: Visualized portions of the aorta and IVC are normal. Procedure Note Alexander Smith MD - 10/14/2024 PROCEDURE: Ultrasound of the abdomen. HISTORY: Abd pain, unspecified. COMPARISON: CT dated 06/05/2021. TECHNIQUE: Grayscale, color Doppler, and spectral Doppler ultrasoundevaluation of the abdomen. FINDINGS: Liver: Normal echotexture. No focal lesion. Normal flow in the mainportal vein. Biliary: Normal gallbladder and biliary tree. Negative sonographic Murphysign. Pancreas: Visualized portions are normal. Kidneys: Normal size. No hydronephrosis. Right cortical cysts. Thelargest is exophytic from the upper pole and measures 7.1 cm. Spleen: Upper normal size. No focal lesion. Vasculature: Visualized portions of the aorta and IVC are normal. IMPRESSION: No significant findings. -------- FINAL REPORT -------- Dictated By: Alexander Smith Dictated Date: 10/14/2024 09:48 ET Assigned Physician: Alexander Smith Reviewed and Electronically Signed By: Alexander Smith Signed Date: 10/14/2024 09:50 ET Workstation ID: [id number] Transcribed By: Self Edit Transcribed Date: 10/14/2024 09:48 ET us Radha Andrews MD IMG US PROCEDURES Final Resu lt * Bilirubin duplicate procedure to order (10/03/2024 11:36 AM EDT) Pathologist [facility] Total Bilirubin 0.9 0.0 - 1.4 mg/dL LAB CHEMISTRY METHOD 10/03/2024 2:14 PM EDT [facility] Bilirubin, Direct 0.3 0.0 - 0.3 mg/dL LAB CHEMISTRY METHOD 10/03/2024 2:14 PM EDT [facility] Bilirubin, Indirect 0.6 0.0 - 1.1 mg/dL LAB CHEMISTRY METHOD 10/03/2024 2:14 PM EDT [facility] Blood Venous blood specimen / Unknown Venipuncture / Unknown 10/03/2024 11:36 AM EDT 10/03/2024 12:58 PM EDT us Radha Andrews MD LAB BLOOD ORDERABLES Final R esult Performing Organization Address City/[facility]/ZIP Co de Phone Number [facility] [address] [place] [address], [place] [phone] * ISAC IFA with titer and pattern (10/03/2024 11:36 AM EDT) [facility] ISAC Negative Negative 10/04/2024 2:18 PM EDT [facility] Blood Venous blood specimen / Unknown Venipuncture / Unknown 10/03/2024 11:36 AM EDT 10/03/2024 12:58 PM EDT us Radha Andrews MD LAB BLOOD ORDERABLES Final R esult [facility] [address] [place] [address], [place] [phone] * (ABNORMAL) CBC auto differential (10/03/2024 11:36 AM EDT) [facility] WBC 2.0(L) 4.8 - 10.8 K/mcL LAB HEMETOLOGY METHOD 10/03/2024 1:54 PM EDT [facility] RBC 5.10 4.50 - 5.50 M/mcL LAB HEMETOLOGY METHOD 10/03/2024 1:54 PM EDT [facility] Hemoglobin 14.9 13.5 - 17.5 g/dL LAB HEMETOLOGY METHOD 10/03/2024 1:54 PM EDT [facility] Hematocrit 44.2 42.0 - 54.0 % LAB HEMETOLOGY METHOD 10/03/2024 1:54 PM EDT [facility] MCV 86.0 79.0 - 98.0 FL LAB [facility]ETOLOGY [facility]24 [facility] MCH 29.0 27.0 - 32.0 pcg LAB HEMETOLOGY METHOD 10/03/2024 1[facility] MCHC 33.7 32.0 - 37.0 g/dL LAB HEMETOLOGY METHOD 10/03/2024 1:[facility] RDW 12.5 11.0 - 15.0 % LAB HEMETOLOGY METHOD 10/03/2024 1:[facility] Platelets 96(L) 130 - 400 K/mcL LAB HEMETOLOGY METHOD 10/03/2024 1:54 [facility] Comment:reviewed by slide MPV 10.8 7.0 - 11.0 FL LAB HEMETOLOGY METHOD 10/03/2024 1:54 PM EDT [facility] NRBC 0.0 <1.0 % LAB HEMETOLOGY METHOD 10/03/2024 1:[facility] NRBC Absolute 0.00 <0.10 K/mcL LAB HEMETOLOGY METHOD 10/03/2024 1:54 [facility] Neutrophils Relative 53.5 % LAB HEMETOLOGY METHOD 10/03/2024 1:54 PM EDT [facility] Lymphocytes Relative 29.5 % LAB HEMETOLOGY METHOD 10/03/2024 1:54 PM T [facility] Monocytes Relative 10.5 % LAB HEMETOLOGY METHOD 10/03/2024 1:54 PM [facility] Eosinophils Relative 5.5 % LAB HEMETOLOGY METHOD 10/03/2024 1:54 PM [facility] Basophils Relative 1.0 % LAB HEMETOLOGY METHOD 10/03/2024 1:54 PM [facility] Immature Granulocytes Relative 0.0 % LAB HEMETOLOGY METHOD 10/03/2024 1:54 PM [facility] Neutrophils Absolute 1.07(L) 1.50 - 7.00 K/mcL LAB HEMETOLOGY METHOD 10/03/2024 1:54 PM [facility] Lymphocytes Absolute 0.59(L) 1.00 - 5.00 K/mcL LAB HEMETOLOGY METHOD 10/03/2024 1:54 PM [facility] Monocytes Absolute 0.21 0.20 - 1.00 K/mcL LAB HEMETOLOGY METHOD 10/03/2024 1:54 PM [facility] Eosinophils Absolute 0.11 0.00 - 0.50 K/mcL LAB HEMETOLOGY METHOD 10/03/2024 1:54 PM [facility] Basophils Absolute 0.02 0.00 - 0.20 K/mcL LAB HEMETOLOGY METHOD 10/03/2024 1:54 PM [facility] Immature Granulocytes Absolute 0.00 0.00 - 0.03 K/mcL LAB HEMETOLOGY METHOD 10/03/2024 1:54 PM [facility] Blood Venous blood specimen / Unknown Venipuncture / Unknown 10/03/2024 11:36 AM EDT 10/03/2024 1:00 PM EDT Radha Andrews MD LAB BLOOD ORDERABLES Final R esult Performing Organization Address City/[facility]/ZIP Co de Phone Number [facility] [address] [place] [address], [place] [phone] * Lactate dehydrogenase (10/03/2024 11:36 AM EDT) Pathologist [facility] LDH 150 120 - 246 unit/L LAB CHEMISTRY METHOD 10/03/2024 2:31 PM EDT [facility] Blood Venous blood specimen / Unknown Venipuncture / Unknown 10/03/2024 11:36 AM EDT 10/03/2024 12:58 PM EDT Radha Andrews MD LAB BLOOD ORDERABLES Final R esult Performing Organization Address [facility] Co de Phone Number [facility] [address] [place] [address], [place] [phone] * (ABNORMAL) Beta 2 microglobulin, serum (10/03/2024 11:36 AM EDT) [facility] Beta-2 Microglobulin 2.4(H) 0.7 - 1.8 mg/L LAB CHEMISTRY METHOD 10/03/2024 2:31 PM EDT [facility] Blood Venous blood specimen / Unknown Venipuncture / Unknown 10/03/2024 11:36 AM EDT 10/03/2024 12:58 PM EDT Radha Andrews MD LAB BLOOD ORDERABLES Final R esult Performing Organization Address City/[facility]/ZIP Co de Phone Number [facility] [address] [place] [address], [place] [phone] * (ABNORMAL) Comprehensive metabolic panel (10/03/2024 11:36 AM EDT) Sodium 141 133 - 145 mmol/L LAB CHEMISTRY METHOD 10/03/2024 2:31 PM [facility] Potassium 4.7 3.5 - 5.5 mmol/L LAB CHEMISTRY METHOD 10/03/2024 2:31 PM [facility] Chloride 109 96 - 110 mmol/L LAB CHEMISTRY METHOD 10/03/2024 2:31 PM [facility] CO2 28 21 - 32 mmol/L LAB CHEMISTRY METHOD 10/03/2024 2:31 PM [facility] Anion Gap 4 3 - 11 LAB CHEMISTRY METHOD 10/03/2024 2:31 PM [facility] Glucose 82 70 - 100 mg/dL LAB CHEMISTRY METHOD 10/03/2024 2:31 PM [facility] BUN 20 5 - 25 mg/dL LAB CHEMISTRY METHOD 10/03/2024 2:31 PM [facility] Creatinine 1.48(H) 0.70 - 1.30 mg/dL LAB CHEMISTRY METHOD 10/03/2024 2:31 PM [facility] eGFR 52(L) >=60 mL/min/1. 73m2 LAB CHEMISTRY METHOD 10/03/2024 2:31 PM [facility] Comment:Calculation based on the Chronic Kidney Disease Epidemiology Collaboration (CKD-EPI) equation refit without adjustment for race. BUN/Creatinine Ratio 13.5 LAB CHEMISTRY METHOD 10/03/2024 2:31 PM [facility] Calcium 8.6 8.5 - 10.5 mg/dL LAB CHEMISTRY METHOD 10/03/2024 2:31 PM [facility] AST (SGOT) 26 10 - 42 unit/L LAB CHEMISTRY METHOD 10/03/2024 2:31 PM [facility] ALT (SGPT) 47 10 - 60 unit/L LAB CHEMISTRY METHOD 10/03/2024 2:31 PM [facility] Alkaline Phosphatase 60 42 - 121 unit/L LAB CHEMISTRY METHOD 10/03/2024 2:31 PM EDT [facility] Total Protein 6.7 6.0 - 8.0 g/dL LAB CHEMISTRY METHOD 10/03/2024 2:31 PM EDT [facility] Albumin 3.9 3.2 - 5.0 g/dL LAB CHEMISTRY METHOD 10/03/2024 2:31 PM EDT [facility] Total Bilirubin 0.9 0.0 - 1.4 mg/dL LAB CHEMISTRY METHOD 10/03/2024 2:31 PM EDT [facility] Blood Venous blood specimen / Unknown Venipuncture / Unknown 10/03/2024 11:36 AM EDT 10/03/2024 12:58 PM EDT Radha Andrews MD LAB BLOOD ORDERABLES Final R esult [facility] [address] [place] [address], * Depression Screening (09/05/2023) [facility] Depression Screening abstracted Historical Provider HEALTH MAINTENANCE Final Result * (ABNORMAL) Lipid panel (05/27/2022) [facility] LDL/HDL Ratio 4 0 - 4 Triglycerides 104 0 - 150 mg/dL Cholesterol 181 0 - 200 mg/dL HDL 45 >=40 mg/dL LDL Cholesterol 116(A) 0 - 100 mg/dL Blood Venous blood specimen / Unknown Historical Provider LAB BLOOD ORDERABLES Eboni l Result * Colonoscopy (09/30/2015) [facility] Colonoscopy abstracted, no interpretation Anatomical Region Laterality Modality Other Historical Provider HEALTH MAINTENANCE Final Result * Hepatitis C Screening (11/04/2014) [facility] Hepatitis C Screening abstracted us Historical Provider HEALTH MAINTENANCE Final Result from Last 3 Months or Most Recently Relevant to Health Maintenance Insurance MEDICAID - [place] [facility] MED[employer] Care Teams Visual Presentation Manager Relationship Specialty Start Date End Date Mao Muro MD [address] [place] [phone] PCP - General Internal Medicine 12/26/16
[2024-12-31 17:02] LABS: PSA,Total (Free>4and<10) 10.36 ng/mL (0.00-4.00)
== END 2024-12-31 12:33 | disposition home or self-care (01) ==
LOC: HO.HMGCLDS 12:32
PROVIDERS: PCP Internal Medicine; Visit Provider Nurse Practitioner Family
DX: R97.20 Elevated prostate specific antigen [PSA] (principal); Z12.5 Encounter for screening for malignant neoplasm of prostate
CPT/HCPCS: 36415; 84153

== ENCOUNTER 2025-01-16 09:11 | Outpatient (AMB) | payer OTHER, SELFPAY ==
--- NOTE | 2025-01-16 09:12 | MHC.OFFVIS ---
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 He has a past medical history of leukopenia, elevated PSA, renal cysts, fibromyalgia, DVT, epididymitis, hyperlipidemia, stage 3 chronic kidney disease, insomnia, anxiety, depression, and BPH. He presents to the office today for follow-up of his elevated PSA. In discussion with the patient today reports to be doing and feeling well. He denies having had any bothersome urinary issues or concerns since his last office visit here. He reports compliance with alfuzosin and finasteride as prescribed. Recent prostate MRI results were reviewed. 11/06 small indeterminate peripheral zone lesion in the left posterolateral mid gland to apex. PI-RADS 3. Prostate volume of 88.9 cc. Recent PSA results reviewed with the patient today as noted and trended below: 08/06 5.2, 01/06 10.4 Previous workup has also included a retroperitoneal ultrasound 09/06 notes the kidneys are normal in size and position. Incidental renal cortical cysts in the right kidney. Prostate is enlarged with a volume of 61 mL there is extrinsic mass effect along the base of the urinary bladder. Patient with a longstanding history of an elevated PSA and previously follow-up with Dr. Langford at [facility]. He has a history of negative prostate biopsy 03/30 at which time his PSA was (5.3). Normal prostate MRI 09/2018. Patient also with a history of gross hematuria and has underwent in office cystoscopy with [facility]. In review of patient's medical record it appears patient with atypical cytologies 2017, 2019, and 2020 however declined repeat cystoscopy. He denies urinary urgency, urinary frequency, incontinence, nocturia, hematuria, dysuria, foul smelling urine, changes to urinary stream, flank pain, fever, and or chills. He is happy with his current voiding parameters. DONG offered however deferred. We discussed elevated PSA in the setting of compliance with finasteride. We discussed further interventions of elevated PSA and risks and benefits of these interventions. We discussed importance of holding anticoagulation for 3 days as well as antibiotic therapy day before, day of, and day after surgical procedure All questions were answered. In office urinalysis results reviewed with the patient today. He otherwise offers no other issues or concerns at this time. [facility] Medical History Elevated PSA Leukopenia Cyst of kidney, acquired Fibromyalgia Spondylosis without myelopathy or radiculopathy, cervical region History of DVT of lower extremity Epididymitis Gastro-esophageal reflux disease without esophagitis Hyperlipidemia Stage 3a chronic kidney disease Insomnia Anxiety and depression Benign prostatic hyperplasia with nocturia Surgical History History of testicular surgery Office Procedures Post Void Residual Post Residual Void Post Void Residual (PVR): 95 40015-Fqav Void Residual by ultrasound Results AMB Urinalysis, Automated UA Leukoctes 0 Dottie/uL Last Edit by MELIDA Trevizo on 01/16/25 09:31 UA Nitrite Negative Last Edit by MELIDA Trevizo on 01/16/25 09:31 UA Urobilinogen 3.5 mg/dL Last Edit by MELIDA Trevizo on 01/16/25 09:31 UA Protein 0 mg/dL Last Edit by MELIDA Trevizo on 01/16/25 09:31 UA pH 5.5 Last Edit by MELIDA Trevizo on 01/16/25 09:31 UA Blood 0 Geovanni/uL Last Edit by MELDIA Trevizo on 01/16/25 09:31 UA Specific Galva 1.015 Last Edit by MELIDA Trevizo on 01/16/25 09:31 UA Ketone Negative Last Edit by MELIDA Trevizo on 01/16/25 09:31 UA Bilirubin 0 mg/dL Last Edit by MELIDA Trevizo on 01/16/25 09:31 UA Glucose 0 mg/dL Last Edit by MELIDA Trevizo on 01/16/25 09:31 Results Reviewed Results Reviewed: Laboratory Last Values Urine pH (Auto) 5.5 01/16/25 09:30 Specific Galva (Auto) 1.015 01/16/25 09:30 Urine Protein (Auto) 0 mg/dL 01/16/25 09:30 Glucose (UA)(Auto) 0 mg/dL 01/16/25 09:30 Urine Ketones (Auto) Negative 01/16/25 09:30 Urine Blood (Auto) 0 Geovanni/uL 01/16/25 09:30 Urine Nitrite (Auto) Negative 01/16/25 09:30 Urine Bilirubin (Auto) 0 mg/dL 01/16/25 09:30 Urine Urobilinogen (Auto) 3.5 mg/dL 01/16/25 09:30 Leukocyte Esterase (Auto) 0 Dottie/uL 01/16/25 09:30 Assessment & Plan Assessment & Plan (1) Elevated PSA: Code(s): R97.20 - Elevated prostate specific antigen [PSA] Category: Medical (2) Renal cyst: Code(s): N28.1 - Cyst of kidney, acquired Category: Medical (3) BPH (benign prostatic hyperplasia): Code(s): N40.0 - Benign prostatic hyperplasia without lower urinary tract symptoms Category: Medical (4) Enlarged prostate: Code(s): N40.0 - Benign prostatic hyperplasia without lower urinary tract symptoms Category: Medical Plan: Plan Risks and benefits regarding trans rectal ultrasound with prostate biopsy were discussed.? Options of continued surveillance, no treatment and biopsy were offered. The risks include but are not limited to, urinary tract infection, sepsis, difficulty urinating, bleeding into the rectum or bladder that requires intervention and transfusion,and failure to diagnose prostate cancer. The patient understands the options and the risks involved. They wish to proceed. Printed information was provided to ensure he remains off anticoagulation for the appropriate length of time. He may require cardiology or PCP clearance.? An antibiotic will be administered prior to, and following the procedure Plan In office urinalysis results with the patient today; as noted above. Recent MRI results reviewed with the patient today; as noted above. Recent PSA results with the patient today; as noted above. We did discussed at length potential causes of elevated PSA as well as further treatment options and risks and benefits of these treatment options. Will schedule for prostate biopsy as discussed. Prescription provided for antibiotic therapy and we discussed specific instructions. All questions were answered. Continue alfuzosin and finasteride as prescribed. He reports be happy with current voiding parameters He denies any bothersome urinary issues or concerns. Follow-up per doctor's orders; or sooner with any issues, concerns, and or questions. Orders: Orders AMB Post Void Residual by ultrasound Today N40.0 - Benign prostatic hyperplasia without lower urinary tract symptoms US biopsy prostate Today R97.20 - Elevated prostate specific antigen [PSA] AMB Urinalysis Automated Today Z13.9 - Encounter for screening, unspecified Urine Cytology Today R31.0 - Gross hematuria Medications: New levofloxacin take 1 tablet day before procedure, 1 tablet day of procedure and 1 tablet day after procedure 500 mg PO DAILY 3 tabs 0RF 3 days Patient Instructions: The patient had an opportunity to ask questions regarding the treatment plan. All questions were answered. Physical exam, labs, and imaging were discussed and reviewed in detail. As well as risks, benefits, and discussion of treatment choices. No major barriers to understanding were identified. The patient expressed understanding and agreement with the above treatment plan. The patient was made aware they should contact our office by phone for worsening of their current condition, the appearance of new symptoms, or with any questions or concerns. Compliance is encouraged with any medications and follow up testing that is ordered. It is a privilege to be allowed the opportunity to participate in? your urological care.? Again, if you have any questions or concerns If you have any questions or concerns please do not hesitate to contact me. The office is [phone]. This note is constructed using voice recognition software. While every effort has been made to ensure accuracy surveyor rod helper errors may have been included. Yours sincerely, ANTHONY Olvera Coding Level of Care Code Est Pt Level 4 (99916) Diagnoses Elevated PSA R97.20 Renal cyst N28.1 BPH (benign prostatic hyperplasia) N40.0 Enlarged prostate N40.0 CPT Codes Post Residual Void - PVR CPT Code: 27165-Mzpv Void Residual by ultrasound ([id number])
--- OUTSIDE RECORDS SUMMARY | 2025-01-16 09:42 | XMS_ITS | Clinical Summary ---
Author Organization [facility] Address [address] [place] [address] Phone Care Team Providers Care Rag Room Supervisor Name Role Phone Mao Muro MD Primary Care Provider [phone] Allergies No known active allergies Medications finasteride [...] 09/26/2022 COVID-19 06/10/2021 Overview (03/07/2024): DX: 05/25/21 [facility]. Epididymitis 06/10/2021 Overview (03/07/2024): Hospitalized [facility] 06/06/21. [...] Description 10/24/2024 9:15 AM EDT Office Visit [facility] Hematology Oncology [address] [place] [address] Radha Andrews MD Leukopenia, unspecified type (Primary Dx); Thrombocytopenia ([facility] V24) from Last 3 Months Immunizations Name Administration [...] 9:45 AM EST Office Visit Adult Medicine [facility] [address] [place] [address] Mao Muro MD [address] [place] [address] 05/22/2025 9:30 AM EST Office Visit [facility] Hematology Oncology [address] [place] [phone] Radha Andrews MD [address] [place] [address] Health Maintenance Due Date Last Done Comments [...] Health Maintenance Results * Depression Screening (09/05/2023) [facility] Depression Screening abstracted [facility] Provider HEALTH MAINTENANCE Final Result * (ABNORMAL) Lipid panel (05/27/2022) [facility] LDL/HDL Ratio 4 0 - 4 Triglycerides 104 0 - 150 mg/dL Cholesterol 181 0 - 200 mg/dL HDL 45 >=40 mg/dL LDL Cholesterol 116(A) 0 - 100 mg/dL Blood Venous blood specimen / Unknown Historical Provider LAB BLOOD ORDERABLES Eboni l Result * Colonoscopy (09/30/2015) [facility] Colonoscopy abstracted, no interpretation Anatomical Region Laterality Modality Other [facility] Provider HEALTH MAINTENANCE Final Result * Hepatitis C Screening (11/04/2014) [facility] Hepatitis C Screening abstracted [facility] Provider HEALTH MAINTENANCE Final Result from Last 3 Months or Most Recently Relevant to Health Maintenance Insurance MEDICAID - [place] [facility] [employer] Care Teams Rag Room Supervisor Relationship Specialty Start Date End Date Mao Muro MD [address] [place] [phone] PCP - General Internal Medicine 12/26/16
--- OUTSIDE RECORDS SUMMARY | 2025-01-16 09:42 | XMS_ITS | Clinical Summary ---
Author Organization [facility] Address [address] [place], [place] [id number] Care Team Providers Care Shrimper Name Role Phone Mao Muro MD Primary Care Provider [phone] Allergies No known active allergies Medications Medication [...] 1 TO 2 TS PO HS PRF COMPUTER SCIENCE INTERN 1 02/13/2019 Active tamsulosin (FLOMAX) 0.4 MG [...] - PCV) 10/26/2023 COVID-19 Vaccine (3 - 2024-2 6 season) 2025 09/22/2020, 09/01/2020 Influenza Vaccine (#1) 2025 8, [...] age to complete this topic Care Teams Shrimper Relationship Specialty Start Date End Date Mao Muro MD PCP - General Internal Medicine 01/31/20
== END 2025-01-16 10:09 | disposition home or self-care (01) ==
LOC: HO.HUSH 09:12
PROVIDERS: PCP Internal Medicine; Visit Provider Nurse Practitioner Family
DX: R97.20 Elevated prostate specific antigen [PSA] (principal); N28.1 Cyst of kidney, acquired; N40.0 Benign prostatic hyperplasia without lower urinary tract symptoms; Z13.9 Encounter for screening, unspecified
CPT/HCPCS: 99214

== ENCOUNTER 2025-01-16 09:11 | Outpatient (REF) | payer OTHER, SELFPAY | END 2025-01-16 09:12 | disposition home or self-care (01) | LOC: HO.LAB 09:11 | PROVIDERS: PCP Internal Medicine; Visit Provider Nurse Practitioner Family | DX: R97.20 Elevated prostate specific antigen [PSA] (principal); N28.1 Cyst of kidney, acquired; N40.0 Benign prostatic hyperplasia without lower urinary tract symptoms; R31.0 Gross hematuria; Z13.89 Encounter for screening for other disorder | CPT/HCPCS: 51798; 81003; 88112; 99212 ==

== ENCOUNTER 2025-02-13 07:55 | Outpatient (REF) | payer OTHER, SELFPAY ==
--- OUTSIDE RECORDS SUMMARY | 2025-02-13 07:57 | XMS_ITS | Clinical Summary ---
Author Organization [facility] Address [address] [place], [place] [id number] Care Team Providers Care Small Business Sales Representative Name Role Phone Mao Muro MD Primary Care Provider [phone] Allergies No known active allergies Medications Medication [...] 1 TO 2 TS PO HS PRF BLOCK MASON 1 02/13/2019 Active tamsulosin (FLOMAX) 0.4 MG [...] age to complete this topic Care Teams Small Business Sales Representative Relationship Specialty Start Date End Date Mao Muro MD PCP - General Internal Medicine 01/31/20
--- OUTSIDE RECORDS SUMMARY | 2025-02-13 07:57 | XMS_ITS | Clinical Summary ---
Author Organization [facility] Address [address] [place] [address] Phone Care Team Providers Care Service Station Attendant Name Role Phone Mao Muro MD Primary Care Provider [phone] Allergies No known active allergies Medications finasteride [...] 09/26/2022 COVID-19 06/10/2021 Overview (03/07/2024): DX: 05/25/21 [facility]. Epididymitis 06/10/2021 Overview (03/07/2024): Hospitalized [facility] 06/06/21. [...] 09/2020 was normal Follows with hematology. Immunizations Immunization Administration Dates Next Due Influenza Quadravalent, MDCK [...] 9:45 AM EST Office Visit Adult Medicine [address], [place] [phone] Mao Muro MD [address], [place] 05/22/2025 9:30 AM EST Office Visit [facility] Hematology Oncology [address] [place] [phone] Radha Andrews MD [address] [place] [address] Health Maintenance Due Date Last Done Comments [...] Health Maintenance Results * Depression Screening (09/05/2023) Pathologist [facility] Depression Screening abstracted [facility] Provider HEALTH MAINTENANCE Final Result * (ABNORMAL) Lipid panel (05/27/2022) Pathologist [facility] LDL/HDL Ratio 4 0 - 4 Triglycerides 104 0 - 150 mg/dL Cholesterol 181 0 - 200 mg/dL HDL 45 >=40 mg/dL LDL Cholesterol 116(A) 0 - 100 mg/dL Blood Venous blood specimen / Unknown Result [facility] Provider LAB BLOOD ORDERABLES Eboni l Result * Colonoscopy (09/30/2015) Pathologist [facility] Colonoscopy abstracted, no interpretation Anatomical Region Laterality Modality Other [facility] Provider HEALTH MAINTENANCE Final Result * Hepatitis C Screening (11/04/2014) Pathologist [facility] Hepatitis C Screening abstracted [facility] Provider HEALTH MAINTENANCE Final Result from Last 3 Months or Most Recently Relevant to Health Maintenance Insurance MEDICAID - [place] [facility] [employer] Care Teams Service Station Attendant Relationship Specialty Start Date End Date Mao Muro MD [address] [place] [phone] PCP - General Internal Medicine 12/26/16
--- NOTE | 2025-02-13 08:28 | P.OP_ITS ---
Operative Note Operative Note Date of Service: 02/13/25 Narrative: Preoperative diagnosis: Elevated PSA Postoperative diagnosis: Elevated PSA Procedure: 1. transrectal ultrasound measurement of prostate 2. transrectal ultrasound-guided pudendal nerve block 3. transrectal ultrasound-guided prostate biopsy 12 core Surgeon: Dr. Ryan Byers Anesthetic: 10cc 1% lidocaine Indications for procedure: Elevated PSA 10.3 Counselling: Technical aspects, risks and benefits of proposed procedure were discussed in full. All questions have been answered, written consent has been obtained and patient agrees to proceed. Procedure: The patient was brought into the procedure area and placed in a left lateral decubitus position. Patient identity confirmed. Perioperative antibiotics confirmed. Safety pause time out performed. DONG was performed to dilate rectal sphincter Iodine 10cc with 60 cc gel was placed per rectum to reduce infection risk using a catheter tip syringe. 8 Hz Sienna rectal end-fire ultrasound probe was placed transrectally without difficulty. The prostate was visualized. Seminal vesicles were normal. Prostate margins were clearly demarcated. Bladder was seen superiorly. No cystic structures were noted No calcifications were noted at the surgical margin The prostate was otherwise heterogenous in nature - mid apical left lateral area there was a 10 mm whorl of tissue that may or may not be consistent with BPH versus prostate cancer. Distinct margins without evidence of spreading tissue. The prostate was measured in 3 dimensions Prostatic Width: 6.0 cm Prostatic Height: 5.0 cm Urethral Length: 5.7 cm Total volume equals : 90 ml An ultrasound-guided pudendal nerve block was performed using a 22 gauge spinal needle in the sagittal plane. 4 cc of 1% lidocaine placed at the junction of each seminal vesicle and 2 cc placed at the apex of the prostate. A 12 core biopsy was performed with 6 cores each side using an 18 gauge prostate biopsy gun. Two cores each were taken at the prostate apex, mid and base on each side. Cores were spaced between lateral and medial aspects. Each core was examined as placed on specimen foam as part of quality audit representative to ensure a minimum 1 cm of length and minimal discontinuity. He tolerated the procedure well with minimal rectal bleeding. Blood pressure remained stable following procedure. He was able to ambulate to bathroom after 5 minutes. Printed instructions regarding antibiotic use and common adverse events from the procedure such as low-grade temperature, potential infection and bleeding were given. He understands to call the office or go to an emergency room should any of these events arise. Pathology: 12 core prostate biopsy. CPT code 78876: Transrectal ultrasound; this is a diagnostic test for evaluation of the prostate and surrounding structures, looking for abnormalities or suspicious areas worrisome for cancer CPT code 82607: Biopsy, prostate; needle or punch, single or multiple, any approach CPT code 66453: Ultrasonic guidance for needle placement (eg, biopsy, aspiration, injection, localization device), imaging supervision and interpretation
[2025-02-13] MEDS: Lidocaine HCl 1 % MPF 5 ML VIAL 10 ML SUBCUT (08:30)
== END 2025-02-13 07:56 | disposition home or self-care (01) ==
LOC: HO.US 07:55
PROVIDERS: PCP Internal Medicine; Visit Provider Urology
DX: N40.0 Benign prostatic hyperplasia without lower urinary tract symptoms (principal)
CPT/HCPCS: 55700; 76942; 88305; 88344; J2003

== ENCOUNTER → 2025-02-13 07:55 | Outpatient (BNV) | payer OTHER, SELFPAY | PROVIDERS: PCP Internal Medicine; Visit Provider Urology | DX: R97.20 Elevated prostate specific antigen [PSA] (principal) | CPT/HCPCS: 55700; 76872; 76942 ==

== ENCOUNTER 2025-03-13 13:09 | Outpatient (AMB) | payer OTHER, SELFPAY ==
--- NOTE | 2025-03-13 13:09 | MHC.OFFVIS ---
Intake Visit Reasons: Prostate biopsy results Intake Note: Patient Is Present for Telehealth Prostate Biopsy Results Urology Med: Alfuzosin, Finasteride Antibiotic Allergy: None Blood Thinner: None Community Arts Worker Required: No Accompanied by: Self / Same As Patient Allergies No Known Allergies Allergy (Verified 03/13/25 13:09) HPI Comments Details: Eduardo is a 64-year-old male patient of . He has a past medical history of leukopenia, elevated PSA, renal cysts, fibromyalgia, DVT, epididymitis, hyperlipidemia, stage 3 chronic kidney disease, insomnia, anxiety, depression, and BPH. Prostate cancer Telemedicine Evaluation 15 min Consultation DesignFace IT Karena Video Single core grade group 5 Recommend PET-CT for complete staging Prostate cancer - organ confined with single grade group 5 core otherwise grade group 2 and 1 Histologic type: Adenocarcinoma, acinar type Histologic grade: Glennie score: 4+5=9 (right apex lateral), 3+4=7 (left base lateral, left base medial and right mid lateral), 3+3=6 (left mid lateral) % of pattern 4: 30% of the cancer % of pattern 5: 20% of the cancer Grade group: 5, 2 and 1 Number cores positive: 5 Total number of cores: 12 % of tissue involved: 5% of all tissue examined Periprostatic fat inv.: Not identified Seminal vesicle inv.: Not identified Perineural inv.: Not identified LVI: Not identified Elevated PSA Compliance with alfuzosin and finasteride as prescribed. Recent prostate MRI results were reviewed. 11/06 small indeterminate peripheral zone lesion in the left posterolateral mid gland to apex. PI-RADS 3. Prostate volume of 88.9 cc. 08/06 5.2, 01/06 10.4 PFSH Medical History Elevated PSA Leukopenia Cyst of kidney, acquired Fibromyalgia Spondylosis without myelopathy or radiculopathy, cervical region History of DVT of lower extremity Epididymitis Gastro-esophageal reflux disease without esophagitis Hyperlipidemia Stage 3a chronic kidney disease Insomnia Anxiety and depression Benign prostatic hyperplasia with nocturia Surgical History History of testicular surgery Review of Systems Const Denies chills and Denies fever(s) Card Reports no additional complaints and Denies syncope Resp Denies cough GI Denies abdominal pain and Denies heartburn Reports as per HPI and Denies change in libido Neuro Denies syncope Psych Denies change in libido Endo Denies change in libido Physical Exam Const General: cooperative, healthy appearing, comfortable and no acute distress Orientation/consciousness: patient oriented x3 HEENT Face and sinus: Yes normal facial exam Mouth: moist mucous membranes Neck Neck: Yes normal visual inspection, Yes full ROM and Yes trachea midline Chest Chest palpation & inspection: normal inspection of the chest Resp Effort & Inspection: normal respiratory effort, able to speak in complete sentences and no respiratory distress GI Inspection: Yes normal to inspection Back/Spine/Pelvis Cervical Spine: normal cervical lordosis Thoracic/Lumbar Spine: thoracic and lumbar spine normal to inspection Skin General skin exam: no rashes or lesions noted Neuro General: patient oriented x3, gait normal, tone normal and moves all extremities Extrem General: Yes normal to inspection and Yes capillary refill normal Telehealth Telehealth Telehealth Platform: [employer] Location of provider rendering services: practice address Location of patient: address on file Patient Identification confirmed using: Name, : Yes Telehealth method: voice only Patient verbally consented to treatment: Yes Patient verbally consented to billing insurance company: Yes Patient informed of any privacy concerns related to visit: Yes Minutes spent on Phone/Video with Pt.: 15 Assessment & Plan Assessment & Plan (1) BPH (benign prostatic hyperplasia): Code(s): N40.0 - Benign prostatic hyperplasia without lower urinary tract symptoms Category: Medical (2) Elevated PSA: Code(s): R97.20 - Elevated prostate specific antigen [PSA] Category: Medical (3) Hormone sensitive prostate cancer: Code(s): C61 - Malignant neoplasm of prostate; Z19.1 - Hormone sensitive malignancy status Category: Medical Plan Prostate cancer Complete staging with PET-CT Orders: Orders PET CT fusion skull to thigh Today C61 - Malignant neoplasm of prostate, Z19.1 - Hormone sensitive malignancy status Patient Instructions: This note is constructed using voice recognition software. While every effort has been made to ensure accuracy handbag frames inspector errors may have been included. Imaging studies, laboratory and physical exam results were discussed and reviewed in detail. No major barriers to patient understanding were identified. An opportunity to ask questions regarding the treatment plan was provided. All questions were answered. The patient expressed understanding and agreement with the above treatment plan. The patient is aware they should contact our office by phone for worsening of their current condition or the appearance of new urologic symptoms. Compliance is encouraged with any medications and followup testing that is ordered. It is a privilege to participate in the urologic care of your patient. If you have any questions or concerns regarding treatment for the above conditions, or other urologic issues, please do not hesitate to contact me. The office telephone contact is [phone]. Sincerely, Dr Ryan Byers MD, [facility] Compassionate Specialist Care for the Genitourinary System Coding Level of Care Code Tele Est Pt Level 4 (88120) Complex EM visit Add On G2211 Diagnoses BPH (benign prostatic hyperplasia) N40.0 Elevated PSA R97.20 Hormone sensitive prostate cancer C61; Z19.1
--- OUTSIDE RECORDS SUMMARY | 2025-03-13 16:03 | XMS_ITS | Clinical Summary ---
Author Organization [facility] Address [address] [place] [address] Phone Care Team Providers Care Semiconductor Assembler Name Role Phone Mao Muro MD Primary Care Provider [phone] Allergies No known active allergies Medications finasteride [...] 09/26/2022 COVID-19 06/10/2021 Overview (03/07/2024): DX: 05/25/21 [facility]. Epididymitis 06/10/2021 Overview (03/07/2024): Hospitalized [facility] [...] 9:45 AM EST Office Visit Adult Medicine [address], [place] [phone] Mao Muro MD [address], [place] 05/22/2025 9:30 AM EST Office Visit [facility] Hematology Oncology [address] [place] [phone] Radha Andrews MD [address] [place] [address] Health Maintenance Due Date Last Done Comments [...] Maintenance Results * Depression Screening (09/05/2023) [facility]ologist [facility] Depression Screening abstracted [facility] Provider HEALTH MAINTENANCE Final Result * (ABNORMAL) Lipid panel (05/27/2022) Pathologist [facility] LDL/HDL Ratio 4 0 - 4 Triglycerides 104 0 - 150 mg/dL Cholesterol 181 0 - 200 mg/dL HDL 45 >=40 mg/dL LDL Cholesterol 116(A) 0 - 100 mg/dL Blood Venous blood specimen / Unknown Result [facility] Provider LAB BLOOD ORDERABLES Eboni l Result * Colonoscopy (09/30/2015) [facility]ologist [facility] Colonoscopy abstracted, no interpretation Anatomical Region Laterality Modality Other [facility] Provider HEALTH MAINTENANCE Final Result * Hepatitis C Screening (11/04/2014) Pathologist [facility] Hepatitis C Screening abstracted [facility] Provider HEALTH MAINTENANCE Final Result from Last 3 Months or Most Recently Relevant to Health Maintenance Insurance [place]ICA[place] - [place] [facility] MEDICARE [employer]VANTAGE MEDICARE Care Teams Semiconductor Assembler Relationship Specialty Start Date End Date Mao Muro MD [address] [place] [phone] PCP - General Internal Medicine 12/26/16
--- OUTSIDE RECORDS SUMMARY | 2025-03-13 16:03 | XMS_ITS | Clinical Summary ---
Author Organization [facility] Address [address] [place], [place] [id number] Care Team Providers Care Spa Assistant Manager Name Role Phone Mao Muro MD Primary Care Provider [phone] Allergies No known active allergies Medications Medication [...] 1 TO 2 TS PO HS PRF BRAZE OPERATOR 1 02/13/2019 Active tamsulosin (FLOMAX) 0.4 MG [...] age to complete this topic Care Teams Spa Assistant Manager Relationship Specialty Start Date End Date Mao Muro MD PCP - General Internal Medicine 01/31/20
== END 2025-03-13 15:38 | disposition home or self-care (01) ==
LOC: HO.HUSH 13:09
PROVIDERS: PCP Internal Medicine; Visit Provider Urology
DX: N40.0 Benign prostatic hyperplasia without lower urinary tract symptoms (principal); R97.20 Elevated prostate specific antigen [PSA]; C61 Malignant neoplasm of prostate; Z19.1 Hormone sensitive malignancy status
CPT/HCPCS: 99214; G2211

== ENCOUNTER 2025-05-06 13:22 | Outpatient (AMB) | payer OTHER, SELFPAY ==
--- OUTSIDE RECORDS SUMMARY | 2025-05-01 14:30 | XMS_ITS | Encounter Summary ---
Author Organization [facility] Address [address] [place] [address] Care Team Providers Care Shoulder Pad Molder Name Role Phone Mao Muro MD Primary Care Provider [phone] Reason for Referral * Consultation (Routine) - Closed Specialty Diagnoses / Procedures Referred By Leroy cardoso Referred To Contact Psychiatry Diagnoses Depression, unspecified depression type Mao Muro MD [address] [place] [address] Phone: tel: fax: External Performed Referral ID Status Reason Start Date Expiration Date V isits Requested Visits Authorized [id number] Closed Specialty Services Required 05/01/2025 05/01/2026 1 1 Reason for Visit * Reason Comments Depression Pt declines flu shot Encounter Details Date Type Department Care Team (Late st Contact Info) Description 05/01/2025 2:30 PM EST Office Visit Adult Medicine [address] [phone] Mao Muro MD [address] [place] [address] Depression, unspecified depression type (Primary Dx); High cholesterol; Benign prostatic hyperplasia with nocturia; Primary insomnia; Polyarthralgia; Fibromyalgia; History of DVT (deep vein thrombosis); Prostate cancer ([facility] V24, [facility] V28) Social History Tobacco Use Types Packs/Day Years [...] on file documented as of this encounter Last Filed Vital Signs Vital Sign Reading Time Taken Comments Blood Pressure 114/74 05/01/2025 2:18 PM EST Pulse 78 05/01/2025 2:18 PM EST Temperature 36.5 C (97.7 F) 05/01/2025 2:18 PM EST Respiratory Rate 14 05/01/2025 2:18 PM EST Oxygen Saturation 97% 05/01/2025 2:18 PM EST Inhaled Oxygen Concentration - - Weight 84.4 kg (186 lb) 05/01/2025 2:18 PM EST Height 180.3 cm (5' 11 ) 05/01/2025 2:18 PM EST Body Mass Index 25.94 05/01/2025 2:18 PM EST documented in this encounter Ordered Prescriptions Prescription Sig Dispense Quantity Refills Last Filled Start Date End Date gabapentin (NEURONTIN) 600 mg tablet Take 1 tablet (600 mg total) by mouth 3 (three) times a day. 270 tablet 3 05/01/2025 tamsulosin (FLOMAX) 0.4 mg 24 hr capsule Take 1 capsule (0.4 mg total) by mouth 1 (one) time each day. Capsules should be taken 30 minutes following the same meal each day. 90 capsule 1 05/01/2025 DULoxetine (CYMBALTA) [address] capsule Do not crush or chew. To take with cymbalta 60mg 90 capsule 1 05/01/2025 DULoxetine (CYMBALTA) [address] capsule Take 1 capsule (60 mg total) by mouth 1 (one) time each day. To take with cymbalta 30mg 90 capsule 1 05/01/2025 fluticasone propionate (FLONASE) 50 mcg/actuation nasal spray Administer 2 sprays into each nostril 1 (one) time each day. Shake gently. Before first use, prime pump. After use, clean tip and replace cap. 16 g 5 05/01/2025 documented in this encounter Progress Notes * Mao Muro MD - 05/01/2025 2:30 PM EST CHIEF COMPLAINT: Depression (Pt declines flu shot) IDENTIFIER: Eduardo Erickson is a 64 y.o. old male. HPI: Pt with depression pt now following therapist pt is seen twice a month Pt notes some benefit with therapist Pt is taking cymbalta 60 mg was on zoloft 100mg but patient stopped med > 6 months for dizzinesswhich did then resolved Pt notes his depression is not tolerable pt recently dx with prostate cancer and brother last monthpassed away for metastatic cancer last month Pt denies suicidal/homicidal ideation Pt is on not sleeping well pt notes nocturia pt notes trazodone helpful but then caused medicine hang over Pt with enlarged prostate had had elevated psa with (+) bx 02/2025 Patient now is to have PET scan on Monday Pt follows with [facility] urology to f/u next week Pt is currently on flomax Pt notes nocturia x 3 pt has hesitancy on occasion pt notes poor urine stream Pt had unprovoked pe dvt pt remains on life long AC and is on eliquis Pt with long hx of polyarthralgia pt has been dx with fibromyalgia Patient is on gabapentin 600 mg tid pt notes pain not controlled Patient has seen rheum notes imaging was done but he has yet to receive results ROS: GENERAL: Negative for malaise, significant weight loss and fever RESPIRATORY: No cough, wheezing or shortness of breath CARDIOVASCULAR: Negative for chest pain, leg swelling and palpitations MUSCULOSKELETAL: See HPI PSYCH: See HPI PAST MEDICAL HISTORY: Patient Active Problem List Diagnosis Date Noted Anxiety and depression 09/26/2022 Benign prostatic hyperplasia with nocturia 09/26/2022 Gastroesophageal reflux disease 09/26/2022 Hyperlipidemia 09/26/2022 Insomnia 09/26/2022 Stage 3a chronic kidney disease ([facility] V24, [facility] V28) 09/26/2022 COVID-19 06/10/2021 Epididymitis 06/10/2021 Spondylosis of cervical region without myelopathy or radiculopathy 08/08/2019 Tendinitis of both rotator cuffs 08/08/2019 Elevated PSA 01/28/2019 Hematuria 01/28/2019 Vitamin D deficiency 06/21/2017 Sleep disorder 05/07/2017 Spondylosis of lumbosacral region 04/14/2017 Fibromyalgia 12/16/2015 Kidney cyst, acquired 02/11/2015 Leukopenia 10/24/2014 SOCIAL HISTORY: Social History Tobacco Use Smoking status: Never Smokeless tobacco: Never Substance Use Topics Alcohol use: Yes FAMILY HISTORY: Family Status Relation Name Status Father (Not Specified) No partnership data on file Family History[1] ACTIVE MEDICATIONS: Medications Taking[2] ALLERGIES: Patient has no known allergies. PHYSICAL EXAM: Blood pressure 114/74, pulse 78, temperature 36.5 ??C (97.7 ??F), temperature source Temporal, resp. rate 14, height 1.803 m (71 ), weight 84.4 kg (186 lb), SpO2 97%. There is no height or weight on file to calculate BMI. Plan is deferred until next visit APPEARANCE: Alert and in no acute distress EYES: PERRLA, conjunctiva and sclera normal HEART: RRR with normal S1 and S2, no murmurs, no gallops, no JVD appreciated LUNG: clear to auscultation bilaterally EXTREMITIES: Extremities warm and well perfused without clubbing, cyanosis, or edema LABS: No results found for: LDLCALC Ldl 116 05/2022 IMPRESSION: 1. Depression, unspecified depression type 2. High cholesterol 3. Benign prostatic hyperplasia with nocturia 4. Primary insomnia 5. Polyarthralgia 6. Fibromyalgia 7. History of DVT (deep vein thrombosis) 8. Prostate cancer ([facility] V24, [facility] V28) PLAN: Patient with depression not controlled pt with social stressors of recently dx prostate cancer and brother recently , patient denies SI/HI pt here with colleter who denies these types of concerns. Pt stopped zoloft 2nd to dizziness. I will at this time increase his cymbalta to 90mg pt also with fibromyalgia and polyarthralgia, pt encouraged to f/u with his stock trader. I am hopeful this increase will help both of these issues. Pt to f/u one month. I aldair refer to psych pt notes not sleeping well but this is mostly due to nocturia see below Patient with newly dx prostate cancer has had long hx of BPH pt to have pet scan this weekend and f/u with urology next week. I will defer management to his urologist. Pt with unprovoked dvt pt is on life long Ac pt currently is on eliquis Patient last ldl 116 will check lipids and calculate ascvd risk if > 7.5% I will recommend statin Patient to f/u in one month Orders Placed This Encounter Procedures Lipid panel with reflex to direct LDL Standing Status: Future Number of Occurrences: 1 Expiration Date: 05/01/2026 Ambulatory referral to Psychiatry Standing Status: Future Expiration Date: 05/01/2026 Referral Priority: Routine Referral Type: Consultation Referral Reason: Specialty Services Required Referred to Provider: Alban Hager NP Requested Specialty: Psychiatry Number of Visits Requested: 1 ADDITIONAL ORDERS: None Mao Muro MD on 05/01/2025 at 11:37 AM EST [1] Family History Problem Relation Name Age of Onset Other cancer Father [2] No outpatient medications have been marked as taking for the 05/01/25 encounter (Appointment) with Mao Muro MD. documented in this encounter Plan of Treatment Upcoming Encounters Date Type Department Care Team (Late st Contact Info) Description 05/22/2025 9:30 AM EST Office Visit [facility] Hematology Oncology [address] [place] [phone] Radha Andrews MD [address] [place] [address] 06/04/2025 4:00 PM EST Office Visit Adult Medicine [address] [phone] Reji Bell PA [address] [place] [address] Scheduled Referrals Name Type Priority Associated Diagnoses Order Schedule Ambulatory referral to Psychiatry Outpatient Referral Routine Depression, unspecified depression type 1 Occurrences starting 05/01/2025 until 05/01/2026 documented as of this encounter Results * (ABNORMAL) Lipid panel with reflex to direct LDL (05/01/2025 3:16 PM EST) Cholesterol 179 0 - 200 mg/dL 05/01/2025 6:32 PM [facility] Triglycerides 80 0 - 150 mg/dL 05/01/2025 6:32 PM [facility] HDL 47 >=40 mg/dL 05/01/2025 6:32 PM [facility] LDL Calculated 116(H) 0 - 100 mg/dL 05/01/2025 6:32 PM [facility] Comment:Estimated LDL is ramon culated using the Friedewald equation: Total cholesterol - HDL cholesterol - (Triglycerides/5) VLDL Cholesterol Ramon 16 mg/dL 05/01/2025 6:32 PM [facility] Non HDL Chol. (LDL+VLDL) 132 <145 mg/dL 05/01/2025 6:32 PM [facility] Chol/HDL Ratio 3.8 0.0 - 4.4 05/01/2025 6:32 PM [facility] Blood Venous blood specimen / Unknown Venipuncture / Unknown 05/01/2025 3:16 PM EST 05/01/2025 3:16 PM EST us Mao Muro MD LAB BLOOD ORDERABLES Final Resu lt [facility] [address] [place] [address], documented in this encounter Visit Diagnoses Diagnosis Depression, unspecified depression type- Primary High cholesterol Pure hypercholesterolemia Benign prostatic hyperplasia with nocturia Primary insomnia Persistent disorder of initiating or maintaining sleep Polyarthralgia Pain in joint, multiple sites Fibromyalgia Unspecified myalgia and myositis History of DVT (deep vein thrombosis) Prostate cancer (CMS/HCC V24, CMS/HCC V28) Malignant neoplasm of prostate documented in this encounter Discontinued Medications Medication Sig Discontinue Reason Start Date End Da te sertraline (ZOLOFT) 100 mg tablet Take 1 tablet (100 mg total) by mouth 1 (one) time each day. 09/03/2021 05/01/2025 tamsulosin (FLOMAX) 0.4 mg 24 hr capsule Take 2 Capsules by mouth daily. Take 30 mins after same meal every day. Reorder 09/05/2023 05/01/2025 fluticasone propionate (FLONASE) 50 mcg/actuation nasal spray Shake liquid and use 2 sprays in each nostril Reorder 11/03/2021 05/01/2025 gabapentin (NEURONTIN) 600 mg tablet Take 1 tablet (600 mg total) by mouth 3 (three) times a day. Reorder 09/24/2024 05/01/2025 DULoxetine (CYMBALTA) [address] capsule TAKE 1 CAPSULE BY MOUTH EVERY DAY Reorder 11/27/2024 05/01/2025 documented as of this encounter Care Teams Shoulder Pad Molder Relationship Specialty Start Date End Date Mao Mruo MD [address] [place] [phone] PCP - General Internal Medicine 12/26/16 documented as of this encounter
--- OUTSIDE RECORDS SUMMARY | 2025-05-01 15:05 | XMS_ITS | Encounter Summary ---
Author Organization [facility] Address [address] [place] [address] Care Team Providers Care Faucets Assembler Name Role Phone Mao Muro MD Primary Care Provider [phone] Encounter Details Date Type Department Care Team (Late Contact Info) Description 05/01/2025 3:05 PM EST Lab Draw Station [address] High cholesterol; Leukopenia, unspecified type; Thrombocytopenia (CMS/HCC V24) Social History Tobacco Use Types Packs/Day Years [...] as of this encounter Plan of Treatment Upcoming Encounters Date Type Department Care Team (Late Contact Info) Description 05/22/2025 9:30 AM EST Office Visit [facility] Hematology Oncology [address] [place] [phone] Radha Andrews MD [address] [place] [address] 06/04/2025 4:00 PM EST Office Visit Adult Medicine [address] [phone] Reji Bell PA [address] [place], [place] Pending Results Name Type Priority Associated Diagnoses Date /Time Platelet antibodies, indirect Lab Routine Leukopenia, unspecified type Thrombocytopenia ([facility]/HCC V24) 05/01/2025 3:16 PM EST Platelet antibodies, direct Lab Routine Leukopenia, unspecified type Thrombocytopenia ([facility]/HCC V24) 05/01/2025 3:16 PM EST documented as of this encounter Procedures Procedure Name Priority Date/Time Associated Diagnosis Comments LIPID PANEL WITH REFLEX TO DIRECT LDL Routine 05/01/2025 3:16 PM EST High cholesterol MANUAL DIFFERENTIAL - SYSMEX WAM Routine 05/01/2025 3:16 PM EST Leukopenia, unspecified type Thrombocytopenia ([facility]/HCC V24) CBC WITH AUTO DIFFERENTIAL Routine 05/01/2025 3:16 PM EST Leukopenia, unspecified type Thrombocytopenia ([facility]/HCC V24) CBC AND DIFFERENTIAL Routine 05/01/2025 3:16 PM EST Leukopenia, unspecified type Thrombocytopenia ([facility]/HCC V24) documented in this encounter Results * (ABNORMAL) Manual differential (05/01/2025 3:16 PM EST) Neutrophils % 48.0 % LAB HEMETOLOGY METHOD 05/01/2025 6:51 PM EST [facility] Lymphocytes % 18.0 % LAB HEMETOLOGY METHOD 05/01/2025 6:51 PM EST [facility] Reactive Lymphocyte 14.00 % LAB HEMETOLOGY METHOD 05/01/2025 6:51 PM EST [facility] Monocytes % 9.0 % LAB HEMETOLOGY METHOD 05/01/2025 6:51 PM EST [facility] Eosinophils % 9.0 % LAB HEMETOLOGY METHOD 05/01/2025 6:51 PM EST [facility] Basophils % 2.0 % LAB HEMETOLOGY METHOD 05/01/2025 6:51 PM EST [facility] Neutrophils Absolute Manual 0.72(L) 1.50 - 7.00 K/mcL LAB HEMETOLOGY METHOD 05/01/2025 6:51 PM [facility] Lymphocytes Absolute 0.27(L) 1.00 - 5.00 K/mcL LAB HEMETOLOGY METHOD 05/01/2025 6:51 PM [facility] Reactive Lymph Abs Manual 0.21(H) 0.00 - 0.00 lym LAB HEMETOLOGY METHOD 05/01/2025 6:51 PM [facility] Monocytes Absolute Manual 0.14(L) 0.20 - 1.00 K/mcL LAB HEMETOLOGY METHOD 05/01/2025 6:51 PM [facility] Eosinophils Absolute Manual 0.14 0.00 - 0.50 K/mcL LAB HEMETOLOGY METHOD 05/01/2025 6:51 PM EST [facility] Basophils Absolute Manual 0.03 0.00 - 0.20 K/mcL LAB HEMETOLOGY METHOD 05/01/2025 6:51 PM EST [facility] Rbc Morphology Consistent with indices Consistent with indices, Normal for [place] LAB HEMETOLOGY METHOD 05/01/2025 6:51 PM EST [facility] Platelet Morphology - WAM See Note(A) Normal LAB HEMETOLOGY METHOD 05/01/2025 6:51 PM EST [facility] Comment:PLT: Normal Blood Venous blood specimen / Unknown Venipuncture / Unknown 05/01/2025 3:16 PM EST 05/01/2025 3:16 PM EST Radha Andrews MD LAB BLOOD ORDERABLES Final R esult [facility] [address] [place] [address], * (ABNORMAL) CBC auto differential (05/01/2025 3:16 PM EST) [facility] WBC 1.5(LL) 4.8 - 10.8 K/mcL LAB HEMETOLOGY METHOD 05/01/2025 6:52 PM EST [facility] RBC 5.40 4.50 - 5.50 M/mcL LAB HEMETOLOGY METHOD 05/01/2025 6:52 PM EST [facility] Hemoglobin 15.4 13.5 - 17.5 g/dL LAB HEMETOLOGY METHOD 05/01/2025 6:52 PM [facility] Hematocrit 45.0 42.0 - 54.0 % LAB HEMETOLOGY METHOD 05/01/2025 6:52 PM [facility] MCV 83.3 79.0 - 98.0 FL LAB HEMETOLOGY METHOD 05/01/2025 6:52 PM EST [facility] MCH 28.5 27.0 - 32.0 pcg LAB HEMETOLOGY METHOD 05/01/2025 6:52 PM [facility] MCHC 34.2 32.0 - 37.0 g/dL LAB HEMETOLOGY METHOD 05/01/2025 6:52 PM [facility] RDW 12.5 11.0 - 15.0 % LAB HEMETOLOGY METHOD 05/01/2025 6:52 PM [facility] Platelets 101(L) 130 - 400 K/mcL LAB HEMETOLOGY METHOD 05/01/2025 6:52 PM [facility] MPV 10.8 7.0 - 11.0 FL LAB HEMETOLOGY METHOD 05/01/2025 6:52 PM [facility] NRBC 0.0 <1.0 % LAB HEMETOLOGY METHOD 05/01/2025 6:52 PM EST [facility] NRBC Absolute 0.00 <0.10 K/mcL LAB HEMETOLOGY METHOD 05/01/2025 6:52 PM [facility] Blood Venous blood specimen / Unknown Venipuncture / Unknown 05/01/2025 3:16 PM EST 05/01/2025 3:16 PM EST [facility] - 05/01/2025 6:52 PM EST [id number] us Radha Andrews MD LAB BLOOD ORDERABLES Final R esult [facility] [address] [place] [address], * (ABNORMAL) Lipid panel with reflex to direct LDL (05/01/2025 3:16 PM EST) Cholesterol 179 0 - 200 mg/dL 05/01/2025 6:32 PM [facility] Triglycerides 80 0 - 150 mg/dL 05/01/2025 6:32 PM [facility] HDL 47 >=40 mg/dL 05/01/2025 6:32 PM [facility] LDL Calculated 116(H) 0 - 100 mg/dL 05/01/2025 6:32 PM [facility] Comment:Estimated LDL is ramon culated using the Friedewald equation: Total cholesterol - HDL cholesterol - (Triglycerides/5) VLDL Cholesterol Ramon 16 mg/dL 05/01/2025 6:32 PM [facility] Non HDL Chol. (LDL+VLDL) 132 <145 mg/dL 05/01/2025 6:32 PM [facility] Chol/HDL Ratio 3.8 0.0 - 4.4 05/01/2025 6:32 PM [facility] Blood Venous blood specimen / Unknown Venipuncture / Unknown 05/01/2025 3:16 PM EST 05/01/2025 3:16 PM EST us Mao Muro MD LAB BLOOD ORDERABLES Final Resu lt [facility] [address] [place] [address], documented in this encounter Visit Diagnoses Diagnosis High cholesterol Pure hypercholesterolemia Leukopenia, unspecified type Thrombocytopenia (CMS/HCC V24) Unspecified thrombocytopenia documented in this encounter Care Teams Faucets Assembler Relationship Specialty Start Date End Date Mao Muro MD [address] [place] [phone] PCP - General Internal Medicine 12/26/16 documented as of this encounter
--- OUTSIDE RECORDS SUMMARY | 2025-05-05 23:59 | XMS_ITS | Continuity of Care Document ---
Author Organization [facility] ter Address [address] [place] [id number]- Care Team Providers Care Library Science Instructor Name Role Phone Mao Muro III, MD Primary Care Physician Encounter 05/04/25 - 05/05/[address] [address]- Attending Physician: Not on Staff, Attending MD Referring Physician: Ryan Byers MD Encounter Type: [facility] Allergies, Adverse Reactions, Alerts No Known Allergies Immunizations Given and Recorded Vaccine Date Status Refusal Reason SARS-CoV-2 (COVID-19) mRNA BNT-162b2 vac 09/22/20 Recorded SARS-CoV-2 (COVID-19) mRNA BNT-162b2 vac 09/01/20 Recorded Medications acetaminophen 325 mg oral tablet 650 mg, By Mouth, Every 4 hours, PRN, Temperature Greater than 100.5, Refills 0, Maintenance, Pain , Mild, 05/28/21 10:56:00 AM EST, Partial fill upon patient request if the prescription is for a schedule II opioid drug. Start Date: 05/28/21 Status: Ordered Medication Dispense Status: Completed Total Allowed Fills: 1 Fills Dispensed: 0 apixaban 5 mg oral tablet 1 tablet = 5 mg, By Mouth, 2 times a day, # 60 tablet, 3 Refills, Maintenance, 05/28/21 1:55:00 PM EST, Tablet, [facility], Partial fill upon patient request if the prescription is for aschedule II opioid drug., 175, cm, 05/25/21 18:07:00 EST, Height, 82, kg, 05/25/21 18:07:00 EST, Dry Weight Start Date: 05/28/21 Status: Ordered Medication Dispense Status: Completed Quantity: 60.0 Unit: tablet Total Allowed Fills: 4 Fills Dispensed: 0 duloxetine 60 mg oral enteric coated capsule 1 capsule = 60 mg, By Mouth, Daily, # 30 capsule, 0 Refills, Maintenance, 01/15/19 11:09:06 AM EDT, EC Capsule Start Date: 01/15/19 Status: Ordered Medication Dispense Status: Completed Quantity: 30.0 Unit: capsule Total Allowed Fills: 1 Fills Dispensed: 0 finasteride 5 mg oral tablet 1 tablet = 5 mg, By Mouth, Daily, # 30 tablet, 0 Refills, Maintenance, 05/25/21 6:13:00 PM EST, Tablet, Partial fill upon patient request if the prescription is for a schedule II opioid drug. Start Date: 05/25/21 Status: Ordered Medication Dispense Status: Completed Quantity: 30.0 Unit: tablet Total Allowed Fills: 1 Fills Dispensed: 0 fluticasone 50 mcg/inh nasal spray 2 sprays, Nares, Both, 2 times a day, # 16 Gm, 0 Refills, Maintenance, 01/15/19 11:09:41 AM EDT, [place] Start Date: 01/15/19 Status: Ordered Medication Dispense Status: Completed Quantity: 16.0 Unit: g Total Allowed Fills: 1 Fills Dispensed: 0 gabapentin 600 mg oral tablet 1 tablet = 600 mg, By Mouth, 3 times a day, # 90 tablet, 0 Refills, Maintenance, 01/15/19 11:09:19 AMEDT, Tablet Start Date: 01/15/19 Status: Ordered Medication Dispense Status: Completed Quantity: 90.0 Unit: tablet Total Allowed Fills: 1 Fills Dispensed: 0 levoFLOXacin 750 mg oral tablet 1 tablet = 750 mg, By Mouth, Every 24 hours, # 6 tablet, 0 Refills, Maintenance, 05/29/21 11:05:00 AM EST, Tablet, [facility], Partial fill upon patient request if the prescription is for a schedule II opioid drug., 175, cm, 05/25/21 18:07:00 EST, Height, 82, kg, 05/25/21 18:07:00 EST,Dry Weight Start Date: 05/29/21 Stop Date: 06/04/21 Status: Ordered Medication Dispense Status: Completed Quantity: 6.0 Unit: tablet Total Allowed Fills: 1 Fills Dispensed: 0 tamsulosin 0.4 mg oral capsule 0.8 mg, 2, capsule, By Mouth, Daily at bedtime, # 30 capsule, Refills 0, Maintenance, 01/15/19 11:09:30 AM EDT Start Date: 01/15/19 Status: Ordered Medication Dispense Status: Completed Quantity: 30.0 Unit: capsule Total Allowed Fills: 1 Fills Dispensed: 0 traZODone 50 mg oral tablet 50 mg, 1, tablet, By Mouth, Daily at bedtime, # 30 tablet, Refills 0, Maintenance, 01/15/19 11:09:00 AM EDT Start Date: 01/15/19 Status: Ordered Medication Dispense Status: Completed Quantity: 30.0 Unit: tablet Total Allowed Fills: 1 Fills Dispensed: 0 Problem List Condition Confirmation Course Effective Dates Status Health St at Informant Spondylosis Confirmed Active Fibromyalgia Confirmed Active Leukopenia Confirmed Active Thrombopenia Confirmed Active PSA elevation Confirmed Active Results Radiology Reports * Exam Date Time Procedure Performing Provider Status 05/04/25 7:[address] PET AI Prostate PSMA (Ga68) Auth (Verified) Notes: (CT PET AI Prostate PSMA (Ga68)) Reason For Exam: Malignant Neoplasm Of Prostate;Malignant NeoplasmOf Prostate RESULT: CT PET AI Prostate PSMA (Ga68) PET-CT [id number] History: Malignant neoplasm of prostate Technique: Approximately 50-100 minutes following the intravenous administration of 6.63 mCi of [id number] (Illuccix), the patient was asked to use the bathroom to empty the bladder and subsequent PET and CT images were obtained from the mid thighs to the base of skull without IV or oral contrast, with the patient maintaining quiet breathing. Injection site was at the right antecubital fossa. Following attenuation correction using the CT images, axial, sagittal, and coronal images were reconstructed. Additional thinner slice reconstruction was performed for the pelvis images. CT images are used for attenuation correction and image localization and were neither performed, nor intended to re place diagnostic quality CT. SUV values normalized by body mass. Comparison: CT abdomen and pelvis without contrast 05/25/2021. MRI pelvis with and without contrast 12/31/2020. FINDINGS: Overall image quality: Good. Physiologic radiotracer distribution is seen in salivary and lacrimal glands, liver, spleen, bowel,and kidneys. PROSTATE: Heterogenous and increased tracer uptake seen throughout the enlarged prostate, SUV max 4.9. SEMINAL VESICLES: Unremarkable. BLADDER: Partially distended. There is mass effect on the bladder from the enlarged prostate. LYMPH NODES: No pathologically enlarged or radiotracer avid lymph nodes. BONES: Physiologic activity with no focal abnormalities. Multilevel degenerative changes of the visualized spine. INCIDENTAL CT FINDINGS: Head and Neck: Physiologic tracer uptake in the head. No avid and enlarged cervical lymph nodes. Chest: Physiologic tracer uptake in the chest. Small bilateral pleural effusions with associated atelectasis. No avid mediastinal, hilar, or axillary lymph nodes. Abdomen and pelvis: Please see above. Otherwise, physiologic tracer uptake in the liver, pancreas, and adrenal glands. The spleen is enlarged. A few right-sided renal cyst measuring up to 6.4 cm. Moderate stool burden. No evidence of bowel obstruction. Small fat-containing umbilical hernia. IMPRESSION: 1. Heterogenous and increased tracer uptake seen throughout the enlarged prostate. Findings can be seen with malignancy. Recommend correlation with PSA and prior biopsy results if available. 2. No avid lymph nodes. 3. No avid osseous lesions. 4. Mild splenomegaly. 5. Small bilateral pleural effusions with associated atelectasis. WSN: [id number] Ordering Physician: Ryan Byers Dictated By: Angie Solano MD Dictated Date/Time: 05/04/25 6:03 pm Reviewed By: Angie Solano MD Signed By: Angie Solano MD Signed Date/Time: 05/04/25 6:03 pm Transcribed By: EILEEN Transcribed Date/Time: 05/04/25 5:39 pm Social History Social History Type Response Smoking Status Never (less than 100 in lifetime); Tobacco user in household: No;Never entered on: 01/15/19 Sex Sex Representation Male (finding) Patient Care team information Care Team Personnel Name: Mao Muro III, MD Position: Reference Physician Member Role: PCP Address: [address] [place] [id number] Telecom: Name: Jud Campos RN Position: [facility] Hospital Assembly Manager Member Role: Primary Care Nurse Name: Christine Earl RN Position: [facility] AMB Nurse Member Role: Primary Care Nurse Name: Ceci Corrales Position: [facility] Outreach Member Role: Lifetime Consulting Physician Care Team Related Persons Name: KELVIN BAKER Name: ALISHA WEEKS Insurance Providers Guarantor name: SHAHID Health Plan Information #: 1 Payer: [employer] Payer Identifier: NA Member Number: [id number] Group Number: [id number] Subscriber Identifier: SHAHID Relationship to Subscriber: self Coverage Type: Medicare Managed Care (Includes Medicare Advantage Plans) Coverage Verification Date: NA Telecom: NA Address: NA
--- NOTE | 2025-05-06 13:25 | A.OFFVIS_ITS ---
Intake Visit Reasons: PET CT F/U SET UA Intake Note: Patient Is Present for follow up Urology Med: Alfuzosin, Finasteride Antibiotic Allergy: None Blood Thinner: None Labs done : 12/31/24 Total PSA 10.36 Imaging: PET CT 05/04/25 PVR:0mls Union Organizer Required: No Accompanied by: Self / Same As Patient Allergies No Known Allergies Allergy (Verified 05/06/25 13:26) HPI Comments Details: Eduardo is a 64-year-old male patient of . He has a past medical history of leukopenia, elevated PSA, renal cysts, fibromyalgia, DVT, epididymitis, hyperlipidemia, stage 3 chronic kidney disease, insomnia, anxiety, depression, and BPH. Prostate cancer Single core grade group 5 30% with grade group 1 and 2 PET-CT - localized to prostate. SUV max 4.9. No lymph nodes or bone activity. Printed information provided for PET-CT and pathology to patient and children He was accompanied by his for children Findings discussed Options provided Surgery versus external beam radiation In high-grade disease there was a 60% biochemical failure rate after surgery Recommend external beam radiation with 12 month GnRH and bicalutamide He is leaning heavily towards this option Refer to [facility] for radiation oncology assessment Organize GnRH so timing can begin Minimal urinary symptoms considering size of prostate Prostate cancer - organ confined with single grade group 5 core otherwise grade group 2 and 1 Histologic type: Adenocarcinoma, acinar type Histologic grade: Gavi score: 4+5=9 (right apex lateral), 3+4=7 (left base lateral, left base medial and right mid lateral), 3+3=6 (left mid lateral) % of pattern 4: 30% of the cancer % of pattern 5: 20% of the cancer Grade group: 5, 2 and 1 Number cores positive: 5 Total number of cores: 12 % of tissue involved: 5% of all tissue examined Periprostatic fat inv.: Not identified Seminal vesicle inv.: Not identified Perineural inv.: Not identified LVI: Not identified Elevated PSA Compliance with alfuzosin and finasteride as prescribed. Recent prostate MRI results were reviewed. 11/06 small indeterminate peripheral zone lesion in the left posterolateral mid gland to apex. PI-RADS 3. Prostate volume of 88.9 cc. 08/06 5.2, 01/06 10.4 [facility] Medical History Elevated PSA Leukopenia Cyst of kidney, acquired Fibromyalgia Spondylosis without myelopathy or radiculopathy, cervical region History of DVT of lower extremity Epididymitis Gastro-esophageal reflux disease without esophagitis Hyperlipidemia Stage 3a chronic kidney disease Insomnia Anxiety and depression Benign prostatic hyperplasia with nocturia Surgical History History of testicular surgery Review of Systems Const Denies chills and Denies fever(s) Card Reports no additional complaints and Denies syncope Resp Denies cough GI Denies abdominal pain and Denies heartburn Reports as per HPI and Denies change in libido Neuro Denies syncope Psych Denies change in libido Endo Denies change in libido Physical Exam Const General: cooperative, healthy appearing, comfortable and no acute distress Orientation/consciousness: patient oriented x3 HEENT Face and sinus: Yes normal facial exam Mouth: moist mucous membranes Neck Neck: Yes normal visual inspection, Yes full ROM and Yes trachea midline Chest Chest palpation & inspection: normal inspection of the chest Resp Effort & Inspection: normal respiratory effort, able to speak in complete sentences and no respiratory distress GI Inspection: Yes normal to inspection Back/Spine/Pelvis Cervical Spine: normal cervical lordosis Thoracic/Lumbar Spine: thoracic and lumbar spine normal to inspection Skin General skin exam: no rashes or lesions noted Neuro General: patient oriented x3, gait normal, tone normal and moves all extremities Extrem General: Yes normal to inspection and Yes capillary refill normal Office Procedures Post Void Residual Post Residual Void Post Void Residual (PVR): 0 44250-Uftm Void Residual by ultrasound Results AMB Urinalysis, Automated UA Leukoctes 0 Dottie/uL Last Edit by MELIDA Coleman on 05/06/25 13:37 UA Nitrite Negative Last Edit by MELIDA Coleman on 05/06/25 13:37 UA Urobilinogen 0.2 mg/dL Last Edit by MELIDA Coleman on 05/06/25 13:37 UA Protein 0 mg/dL Last Edit by MELIDA Coleman on 05/06/25 13:37 UA pH 6.0 Last Edit by MELIDA Coleman on 05/06/25 13:37 UA Blood 0 Geovanni/uL Last Edit by MELIDA Coleman on 05/06/25 13:37 UA Specific [place] 1.015 Last Edit by Wen Perez, CCMA on 05/06/25 13:3 7 UA Ketone Negative Last Edit by Wen Perez, CCMA on 05/06/25 13:37 UA Bilirubin 0 mg/dL Last Edit by Wen Perez, CCMA on 05/06/25 13:37 UA Glucose 0 mg/dL Last Edit by Wen Perez, [facility] on 05/06/25 13:37 Results Reviewed Results Reviewed: Laboratory Last Values Urine pH (Auto) 6.0 05/06/25 13:36 Specific [place] (Auto) 1.015 05/06/25 13:36 Urine Protein (Auto) 0 mg/dL 05/06/25 13:36 Glucose (UA)(Auto) 0 mg/dL 05/06/25 13:36 Urine Ketones (Auto) Negative 05/06/25 13:36 Urine Blood (Auto) 0 Geovanni/uL 05/06/25 13:36 Urine Nitrite (Auto) Negative 05/06/25 13:36 Urine Bilirubin (Auto) 0 mg/dL 05/06/25 13:36 Urine Urobilinogen (Auto) 0.2 mg/dL 05/06/25 13:36 Leukocyte Esterase (Auto) 0 Dottie/uL 05/06/25 13:36 Assessment & Plan Assessment & Plan (1) Hormone sensitive prostate cancer: Code(s): C61 - Malignant neoplasm of prostate; Z19.1 - Hormone sensitive malignancy status Category: Medical Plan Referral radiation oncology [facility] 2 weeks Space oar plus gold seed marker 8 weeks Orders: Orders AMB Urinalysis Automated 05/06/25 N13.8 - Other obstructive and reflux uropathy, N40.1 - Benign prostatic hyperplasia with lower urinary tract symptoms AMB Post Void Residual by ultrasound 05/06/25 N40.1 - Benign prostatic hyperplasia with lower urinary tract symptoms Referrals Radiation Oncology Referral C61 - Malignant neoplasm of prostate, Z19.1 - Hormone sensitive malignancy status Patient Instructions: This note is constructed using voice recognition software. While every effort has been made to ensure accuracy feather boner errors may have been included. Imaging studies, laboratory and physical exam results were discussed and reviewed in detail. No major barriers to patient understanding were identified. An opportunity to ask questions regarding the treatment plan was provided. All questions were answered. The patient expressed understanding and agreement with the above treatment plan. The patient is aware they should contact our office by phone for worsening of their current condition or the appearance of new urologic symptoms. Compliance is encouraged with any medications and followup testing that is ordered. It is a privilege to participate in the urologic care of your patient. If you have any questions or concerns regarding treatment for the above conditions, or other urologic issues, please do not hesitate to contact me. The office telephone contact is [phone]. Sincerely, Dr Ryan Byers MD, [facility] - Urology Compassionate Specialist Care for the Genitourinary System Coding Level of Care Code Est Pt Level 4 (13783) Diagnoses Hormone sensitive prostate cancer C61; Z19.1 CPT Codes Post Residual Void - PVR CPT Code: 35039-Cvck Void Residual by ultrasound ([id number])
--- OUTSIDE RECORDS SUMMARY | 2025-05-06 14:31 | XMS_ITS | Clinical Summary ---
Author Organization [facility] Address [address] [place] [address] Phone Care Team Providers Care Ancient Art Curator Name Role Phone Mao Muro MD Primary Care Provider [phone] Allergies No known active allergies Medications finasteride (PROSCAR) 5 mg tablet Take 1 tablet (5 mg total) by mouth 1 (one) time each day. 09/05/19 24 Active diclofenac (VOLTAREN) 1 % topical gel Apply 4 g topically 4 times daily. 05/27/19 23 Active hydrocortisone (Proctozone-HC ) 2.5 % rectal cream USE RECTALLY UP TO FIVE TIMES DAILY NEEDED 12/30/19 20 Active omeprazole (PriLOSEC) [address] capsule TAKE 1 CAPSULE BY MOUTH EVERY DAY 90 capsule 1 03/25/20 24 Active apixaban (Eliquis) 5 mg tablet Take 1 tablet (5 mg total) by mouth 2 (two) times a day. 180 tablet 3 09/25/19 25 Active traZODone (DESYREL) 50 mg tablet Take 2 tablets (100 mg total) by mouth at bedtime. at bedtime 180 tablet 1 03/25/20 25 Active fluticasone propionate (FLONASE) 50 mcg/actuation nasal spray Administer 2 sprays into each nostril 1 (one) time each day. Shake gently. Before first use, prime pump. After use, clean tip and replace cap. 16 g 5 05/01/20 Active DULoxetine (CYMBALTA) [address] capsule Take 1 capsule (60 mg total) by mouth 1 (one) time each day. To take with cymbalta 30mg 90 capsule 1 05/01/20 Active DULoxetine (CYMBALTA) [address] capsule Do not crush or chew. To take with cymbalta 60mg 90 capsule 1 05/01/20 Active tamsulosin (FLOMAX) 0.4 mg 24 hr capsule Take 1 capsule (0.4 mg total) by mouth 1 (one) time each day. Capsules should be taken 30 minutes following the same meal each day. 90 capsule 1 05/01/20 Active gabapentin (NEURONTIN) 600 mg tablet Take 1 tablet (600 mg total) by mouth 3 (three) times a day. 270 tablet 3 05/01/20 Active tamsulosin (FLOMAX) 0.4 mg 24 hr capsule Take 2 Capsules by mouth daily. Take 30 mins after same meal every day. 09/05/19 24 025 Discontinued(Re order) fluticasone propionate (FLONASE) 50 mcg/actuation nasal spray Shake liquid and use 2 sprays in each nostril 11/04/19 025 Discontinued(Re order) sertraline (ZOLOFT) 100 mg tablet Take 1 tablet (100 mg total) by mouth 1 (one) time each day. 09/04/19 025 Discontinued gabapentin (NEURONTIN) 600 mg tablet Take 1 tablet (600 mg total) by mouth 3 (three) times a day. 270 tablet 3 09/25/19 25 025 Discontinued(Re order) DULoxetine (CYMBALTA) [address] capsule TAKE 1 CAPSULE BY MOUTH EVERY DAY 90 capsule 1 11/28/19 025 Discontinued(Re order) Active Problems Problem Noted Date Diagnosed Date Prostate cancer 05/01/2025 Anxiety and depression 09/26/2022 Benign prostatic hyperplasia with nocturia 09/26 Gastroesophageal reflux disease 09/26/2022 Hyperlipidemia 09/26/2022 Insomnia 09/26/2022 Stage 3a chronic kidney disease 09/26/2022 COVID-19 06/10/2021 Overview (03/07/2024): DX: 05/25/21 [facility]. Epididymitis 06/10/2021 Overview (03/07/2024): Hospitalized [facility] [...] Encounters Date Type Department Care Team Description 05/01/2025 3:05 PM EST Lab Draw [address] High cholesterol; Leukopenia, unspecified type; Thrombocytopenia ([facility]/HCC V24) 05/01/2025 2:30 PM EST Office Visit Adult [address] [phone] Mao Muro MD Depression, unspecified depression type (Primary Dx); High cholesterol; Benign prostatic hyperplasia with nocturia; Primary insomnia; Polyarthralgia; Fibromyalgia; History of DVT (deep vein thrombosis); Prostate cancer (CMS/HCC V24, CMS/HCC V28) 05/01/2025 Results Follow-Up Adult [address] [phone] Mao Muro MD 03/14/2025 Telephone Adult Medicine [address] [phone] Mao Muro MD from Last 3 Months Immunizations Immunization Administration Dates Next Due Influenza [...] on file Sexual Orientation Not on file Last Filed Vital Signs [...] Mass Index 25.94 05/01/2025 2:18 PM EST Plan of Treatment Upcoming Encounters Date Type Department Care Team (Late st Contact Info) Description 05/22/2025 9:30 AM EST Office Visit [facility] Hematology Oncology [address] [place] [phone] Radha Andrews MD [address] [place] [address] 06/04/2025 4:00 PM EST Office Visit Adult Medicine [facility] [address] [place] [address] Reji Bell PA [address] [place] [phone] Health Maintenance Due Date Last Done Comments [...] Tdap) 06/21/2027 06/21/2017 Cholesterol Screening (Lipid Panel) 05/01/2030 05/01/2025, 03/11/2024, 05/27/2022 RSV Immunization Adult Patients (1 [...] Procedure Name Priority Date/Time Associated Diagnosis Comments MANUAL DIFFERENTIAL - SYSMEX WAM Routine 05/01/2025 3:16 PM EST Leukopenia, unspecified type Thrombocytopenia (CMS/HCC V24) CBC WITH AUTO DIFFERENTIAL Routine 05/01/2025 3:16 PM EST Leukopenia, unspecified type Thrombocytopenia (CMS/HCC V24) CBC AND DIFFERENTIAL Routine 05/01/2025 3:16 PM EST Leukopenia, unspecified type Thrombocytopenia (CMS/HCC V24) LIPID PANEL WITH REFLEX TO DIRECT LDL Routine 05/01/2025 3:16 PM EST High cholesterol DEPRESSION SCREENING Routine 09/05/2023 COLONOSCOPY Routine 09/30/2015 HEPATITIS C SCREENING Routine 11/04/2014 from Last 3 Months or Most Recently Relevant to Health Maintenance Results * (ABNORMAL) Lipid panel with reflex to direct LDL (05/01/2025 3:16 PM EST) Cholesterol 179 0 - 200 mg/dL 05/01/2025 6:32 PM EST [facility] Triglycerides 80 0 - 150 mg/dL 05/01/2025 6:32 PM EST [facility] HDL 47 >=40 mg/dL 05/01/2025 6:32 PM EST [facility] LDL Calculated 116(H) 0 - 100 mg/dL 05/01/2025 6:[address] [facility] Comment:Estimated LDL is ramon culated using the Friedewald equation: Total cholesterol - HDL cholesterol - (Triglycerides/5) VLDL Cholesterol Ramon 16 mg/dL 05/01/2025 6:[address] [facility] Non HDL Chol. (LDL+VLDL) 132 <145 mg/dL 05/01/2025 6:[address] [facility] Chol/HDL Ratio 3.8 0.0 - 4.4 05/01/2025 6:[address] [facility] Blood Venous blood specimen / Unknown Venipuncture / Unknown 05/01/2025 3:16 PM EST 05/01/2025 3:16 PM EST us Mao Muro MD LAB BLOOD ORDERABLES Final Resu lt [facility] [address] [place] [address], [place] [phone] * (ABNORMAL) Manual differential (05/01/2025 3:16 PM EST) Neutrophils % 48.0 % LAB HEMETOLOGY METHOD 05/01/2025 6:[address] [facility] Lymphocytes % 18.0 % LAB HEMETOLOGY METHOD 05/01/2025 6:[address] [facility] Reactive Lymphocyte 14.00 % LAB HEMETOLOGY METHOD 05/01/2025 6:[address] [facility] Monocytes % 9.0 % LAB HEMETOLOGY METHOD 05/01/2025 6:[address] [facility] Eosinophils % 9.0 % LAB HEMETOLOGY METHOD 05/01/2025 6:[address] [facility] Basophils % 2.0 % LAB HEMETOLOGY METHOD 05/01/2025 6:51 PM EST [facility] Neutrophils Absolute Manual 0.72(L) 1.50 - 7.00 K/mcL LAB HEMETOLOGY METHOD 05/01/2025 6:51 PM EST [facility] Lymphocytes Absolute 0.27(L) 1.00 - 5.00 K/mcL LAB HEMETOLOGY METHOD 05/01/2025 6:51 PM EST [facility] Reactive Lymph Abs Manual 0.21(H) 0.00 - 0.00 lym LAB HEMETOLOGY METHOD 05/01/2025 6:51 PM EST [facility] Monocytes Absolute Manual 0.14(L) 0.20 - 1.00 K/mcL LAB HEMETOLOGY METHOD 05/01/2025 6:51 PM EST [facility] Eosinophils Absolute Manual 0.14 0.00 - 0.50 K/mcL LAB HEMETOLOGY METHOD 05/01/2025 6:51 PM EST [facility] Basophils Absolute Manual 0.03 0.00 - 0.20 K/[facility] LAB HEMETOLOGY METHOD 05/01/2025 6:51 PM EST [facility] Rbc Morphology Consistent with indices Consistent with indices, Normal for LAB HEMETOLOGY METHOD 05/01/2025 6:51 PM EST [facility] Platelet Morphology - WAM See Note(A) Normal LAB HEMETOLOGY METHOD 05/01/2025 6:51 PM EST [facility] Comment:PLT: Normal Blood Venous blood specimen / Unknown Venipuncture / Unknown 05/01/2025 3:16 PM EST 05/01/2025 3:16 PM EST us Radha Andrews MD LAB BLOOD ORDERABLES Final R esult [facility] [address] [place] [address], * (ABNORMAL) CBC auto differential (05/01/2025 3:16 PM EST) WBC 1.5(LL) 4.8 - 10.8 K/mcL LAB HEMETOLOGY METHOD 05/01/2025 6:[address] [facility] RBC 5.40 4.50 - 5.50 M/mcL LAB HEMETOLOGY METHOD 05/01/2025 6:[address] [facility] Hemoglobin 15.4 13.5 - 17.5 g/dL LAB HEMETOLOGY METHOD 05/01/2025 6:[address] [facility] Hematocrit 45.0 42.0 - 54.0 % LAB HEMETOLOGY METHOD 05/01/2025 6:[address] [facility] MCV 83.3 79.0 - 98.0 FL LAB HEMETOLOGY METHOD 05/01/2025 6:[address] [facility] MCH 28.5 27.0 - 32.0 pcg LAB HEMETOLOGY METHOD 05/01/2025 6:[address] [facility] MCHC 34.2 32.0 - 37.0 g/dL LAB HEMETOLOGY METHOD 05/01/2025 6:[address] [facility] RDW 12.5 11.0 - 15.0 % LAB HEMETOLOGY METHOD 05/01/2025 6:[address] [facility] Platelets 101(L) 130 - 400 K/mcL LAB HEMETOLOGY METHOD 05/01/2025 6:[address] [facility] MPV 10.8 7.0 - 11.0 FL LAB HEMETOLOGY METHOD 05/01/2025 6:[address] [facility] NRBC 0.0 <1.0 % LAB HEMETOLOGY METHOD 05/01/2025 6:[address] [facility] NRBC Absolute 0.00 <0.10 K/mcL LAB HEMETOLOGY METHOD 05/01/2025 6:[address] [facility] Blood Venous blood specimen / Unknown Venipuncture / Unknown 05/01/2025 3:16 PM EST 05/01/2025 3:16 PM EST Narrative [facility] - 05/01/2025 6:52 PM EST [phone] Radha Andrews MD LAB BLOOD ORDERABLES Final R esult [facility] [address] [place] [address], [place] [phone] * Depression Screening (09/05/2023) Depression Screening abstracted Historical Provider HEALTH MAINTENANCE Final Result * Colonoscopy (09/30/2015) Colonoscopy abstracted, no interpretation Anatomical Region Laterality Modality Other Historical Provider HEALTH MAINTENANCE Final Result * Hepatitis C Screening (11/04/2014) Hepatitis C Screening abstracted Historical Provider HEALTH MAINTENANCE Final Result from Last 3 Months or Most Recently Relevant to Health Maintenance Insurance [employer] MEDICARE Care Teams Ancient Art Curator Relationship Specialty Start Date End Date Mao Muro MD [address] [place] [phone] PCP - General Internal Medicine 12/26/16
--- OUTSIDE RECORDS SUMMARY | 2025-05-06 14:31 | XMS_ITS | Clinical Summary ---
Author Organization [facility] Prior to 10/12/[address] [place] [id number] Care Team Providers Care Recreation Teacher Name Role Phone Mao Muro MD Primary Care Provider [phone] Allergies No known active allergies Medications Medication [...] 1 TO 2 TS PO HS PRF BOTTLE LABEL INSPECTOR 1 02/13/2019 Active tamsulosin (FLOMAX) 0.4 MG [...] age to complete this topic Care Teams Recreation Teacher Relationship Specialty Start Date End Date Mao Muro MD PCP - General Internal Medicine 01/31/20
--- OUTSIDE RECORDS SUMMARY | 2025-05-06 14:31 | XMS_ITS | Encounter Summary ---
Author Organization [facility] Address [address] [place] [address] Care Team Providers Care Pulping Machine Operator Name Role Phone Mao Muro MD Primary Care Provider [phone] Encounter Details Date Type Department Care Team (Late st Contact Info) Description 05/01/2025 Results Follow-Up Adult Medicine [address] [phone] Mao Muro MD [address] [place] [address] Social History Tobacco Use Types Packs/Day Years [...] Description 05/22/2025 9:30 AM EST Office Visit [facility] Hematology Oncology [address] [place] [phone] Radha Andrews MD [address] [place] [address] 06/04/2025 4:00 PM EST Office Visit Adult Medicine [facility] [address] [place] [address] Reji Bell PA [address] [place], [place] documented as of this encounter Visit Diagnoses Not on filedocumented in this encounter Care Teams Pulping Machine Operator Relationship Specialty Start Date End Date Mao Muro MD [address] [place] [address] PCP - General Internal Medicine 12/26/16 documented as of this encounter
== END 2025-05-06 14:45 | disposition home or self-care (01) ==
LOC: HO.HUSH 13:23
PROVIDERS: PCP Internal Medicine; Visit Provider Urology
DX: N40.1 Benign prostatic hyperplasia with lower urinary tract symptoms (principal); N13.8 Other obstructive and reflux uropathy
CPT/HCPCS: 99214

== ENCOUNTER → 2025-05-06 13:22 | Outpatient (BNVA) | payer OTHER, SELFPAY | PROVIDERS: PCP Internal Medicine; Visit Provider Urology | DX: C61 Malignant neoplasm of prostate (principal); N40.1 Benign prostatic hyperplasia with lower urinary tract symptoms; N13.8 Other obstructive and reflux uropathy; Z19.1 Hormone sensitive malignancy status | CPT/HCPCS: 51798; 81003; 99212 ==